=== PATIENT | female | born 1950 | race Caucasian/White ===

== ENCOUNTER 2024-02-22 03:49 | Inpatient (IN) | payer MEDICARE ==
[2024-02-22] MEDS: IPRATROPIUM-ALBUTEROL 3 ML NEB INHALATION STA (04:06)
[2024-02-22] MEDS: NITROGLYCERIN SL TABS 0.4 MG TAB SUBLINGUAL STA (04:06)
--- NOTE | 2024-02-22 04:11 | ED ---
SOB HPI - General Chief Complaint: Shortness of Breath Stated Complaint: shortness of breath Time Seen by Provider: 02/22/24 03:59 Source: patient Mode of arrival: wheelchair Limitations: no limitations - History of Present Illness Initial Comments: Patient is a 73-year-old woman who presents with complaint that she is having worsening of shortness of breath. Patient does have mild nonproductive cough. The symptoms have been getting worse for 7 to 10 days or so. Patient's states that the patient has not been able to sleep other than an her chair and only for a couple of hours at a time. The patient cannot lie flat. She has not noted chest pain. No diaphoresis. No leg swelling, change in urination or bowel movements. Patient does have history of COPD and sees Dr. Monet. She has over 30-year smoking history quit about 3 months ago. MD Complaint: shortness of breath Onset/Timin -: week(s) Severity scale (1-10): 0 Consistency: constant Improves With: upright position Worsens With: lying flat, exertion Known History Of: COPD Associated Symptoms: cough Treatments Prior to Arrival: none - Related Data Home Oxygen Therapy: No Allergies Allergy/AdvReac Type Severity Reaction Status Date / Time bupropion [From Zyban] Allergy Unknown Verified 02/22/24 03:52 naproxen Allergy Unknown Verified 02/22/24 03:51 Review of Systems ROS Statement: Those systems with pertinent positive or pertinent negative responses have been documented in the HPI. ROS Other: All systems not noted in ROS Statement are negative. Constitutional: Denies: fever, chills Respiratory: Reports: cough, dyspnea, wheezes. Denies: hemoptysis Cardiovascular: Reports: dyspnea on exertion, orthopnea. Denies: chest pain, palpitations, edema, syncope Gastrointestinal: Denies: abdominal pain, nausea, vomiting, diarrhea Genitourinary: Denies: dysuria, hematuria Musculoskeletal: Denies: back pain Skin: Denies: rash Neurological: Denies: headache, weakness, numbness Past Medical History Past Medical History: COPD, Hyperlipidemia, Hypertension History of Any Multi-Drug Resistant Organisms: None Reported Past Surgical History: Hysterectomy, Tubal Ligation Past Psychological History: No Psychological Hx Reported Smoking Status: Former smoker Past Alcohol Use History: None Reported Past Drug Use History: None Reported General Exam Limitations: no limitations General appearance: alert, in distress Head exam: Present: atraumatic, normocephalic Eye exam: Present: normal appearance. Absent: scleral icterus, conjunctival injection Neck exam: Present: normal inspection Respiratory exam: Present: respiratory distress, wheezes, accessory muscle use, decreased breath sounds. Absent: rales, rhonchi, stridor, chest wall tenderness Cardiovascular Exam: Present: regular rate, normal rhythm, systolic murmur. Absent: diastolic murmur, rubs, gallop GI/Abdominal exam: Present: soft. Absent: distended, tenderness, guarding, rebound, rigid, mass Extremities exam: Present: normal inspection, normal capillary refill. Absent: pedal edema, calf tenderness Back exam: Present: normal inspection. Absent: CVA tenderness (R), CVA tenderness (L) Neurological exam: Present: alert Skin exam: Present: warm, dry, intact, normal color. Absent: rash Course Vital Signs 02/22/24 02/22/24 02/22/24 03:52 03:55 04:00 Temperature 97.4 F L Pulse Rate 112 H 114 H Respiratory 36 H 40 H 43 H Rate Blood Pressure 187/86 O2 Sat by Pulse 88 L 84 L Oximetry Fraction of Inspired Oxygen (FIO2) 02/22/24 02/22/24 02/22/24 04:03 04:10 04:11 Temperature Pulse Rate 116 H 116 H Respiratory 42 H Rate Blood Pressure 149/88 O2 Sat by Pulse 96 94 L Oximetry Fraction of Inspired Oxygen (FIO2) 02/22/24 02/22/24 02/22/24 04:12 04:25 04:45 Temperature Pulse Rate 111 H 108 H Respiratory 32 H Rate Blood Pressure 134/81 O2 Sat by Pulse 98 Oximetry Fraction of 40 Inspired Oxygen (FIO2) 02/22/24 02/22/24 02/22/24 05:13 05:18 05:28 Temperature Pulse Rate 116 H 114 H 118 H Respiratory 45 H Rate Blood Pressure 125/107 O2 Sat by Pulse 98 Oximetry Fraction of Inspired Oxygen (FIO2) 02/22/24 02/22/24 02/22/24 05:29 05:39 06:00 Temperature Pulse Rate 118 H 120 H 126 H Respiratory 29 H Rate Blood Pressure 129/87 O2 Sat by Pulse 98 Oximetry Fraction of Inspired Oxygen (FIO2) 02/22/24 02/22/24 06:45 07:40 Temperature Pulse Rate 115 H 109 H Respiratory 23 14 Rate Blood Pressure 119/73 132/81 O2 Sat by Pulse 100 99 Oximetry Fraction of Inspired Oxygen (FIO2) Medical Decision Making - Medical Decision Making This 73-year-old woman with history of COPD presenting with worsening dyspnea. Patient also has element of orthopnea associated. On arrival patient is markedly hypertensive, tachypneic, pulse oximetry low 80s. Patient is placed on BiPAP she did have bronchodilators and steroids. She did have improvement with treatment, but then did have some recurrence. She is given additional treatments but states not nearly back to baseline. This patient be admitted - Lab Data Result diagrams: 02/22/24 04:05 02/22/24 04:05 Lab Results 02/22/24 02/22/24 02/22/24 Range/Units 04:05 04:05 04:05 WBC 9.8 (3.8-10.6) k/uL RBC 5.08 (3.80-5.40) m/uL Hgb 15.5 (11.4-16.0) gm/dL Hct 47.5 H (34.0-46.0) % MCV 93.5 (80.0-100.0) fL MCH 30.6 (25.0-35.0) pg MCHC 32.7 (31.0-37.0) g/dL RDW 13.6 (11.5-15.5) % Plt Count 220 (150-450) k/uL MPV 7.1 Neutrophils % 50 % Lymphocytes % 26 % Monocytes % 4 % Eosinophils % 17 % Basophils % 1 % Neutrophils # 4.9 (1.3-7.7) k/uL Lymphocytes # 2.5 (1.0-4.8) k/uL Monocytes # 0.4 (0-1.0) k/uL Eosinophils # 1.7 H (0-0.7) k/uL Basophils # 0.1 (0-0.2) k/uL PT 10.5 (10.0-12.5) sec INR 0.9 (<1.2) APTT 24.1 (22.0-30.0) sec Sodium 139 (137-145) mmol/L Potassium 3.8 (3.5-5.1) mmol/L Chloride 103 (98-107) mmol/L Carbon Dioxide 28 (22-30) mmol/L Anion Gap 8 mmol/L BUN 11 (7-17) mg/dL Creatinine 0.67 (0.52-1.04) mg/dL Est GFR (CKD-EPI)AfAm >90 (>60 ml/min/1.73 sqM) Est GFR (CKD-EPI)NonAf 88 (>60 ml/min/1.73 sqM) Glucose 116 H (74-99) mg/dL Plasma Lactic Acid Franck (0.7-2.0) mmol/L Calcium 9.7 (8.4-10.2) mg/dL Total Bilirubin 0.9 (0.2-1.3) mg/dL AST 30 (14-36) U/L ALT 16 (4-34) U/L Alkaline Phosphatase 59 (38-126) U/L Troponin I (0.000-0.034) ng/mL NT-Pro-B Natriuret Pep 253 pg/mL Total Protein 7.7 (6.3-8.2) g/dL Albumin 5.0 (3.5-5.0) g/dL 02/22/24 02/22/24 Range/Units 04:05 04:05 WBC (3.8-10.6) k/uL RBC (3.80-5.40) m/uL Hgb (11.4-16.0) gm/dL Hct (34.0-46.0) % MCV (80.0-100.0) fL MCH (25.0-35.0) pg MCHC (31.0-37.0) g/dL RDW (11.5-15.5) % Plt Count (150-450) k/uL MPV Neutrophils % % Lymphocytes % % Monocytes % % Eosinophils % % Basophils % % Neutrophils # (1.3-7.7) k/uL Lymphocytes # (1.0-4.8) k/uL Monocytes # (0-1.0) k/uL Eosinophils # (0-0.7) k/uL Basophils # (0-0.2) k/uL PT (10.0-12.5) sec INR (<1.2) APTT (22.0-30.0) sec Sodium (137-145) mmol/L Potassium (3.5-5.1) mmol/L Chloride (98-107) mmol/L Carbon Dioxide (22-30) mmol/L Anion Gap mmol/L BUN (7-17) mg/dL Creatinine (0.52-1.04) mg/dL Est GFR (CKD-EPI)AfAm (>60 ml/min/1.73 sqM) Est GFR (CKD-EPI)NonAf (>60 ml/min/1.73 sqM) Glucose (74-99) mg/dL Plasma Lactic Acid Franck 1.1 (0.7-2.0) mmol/L Calcium (8.4-10.2) mg/dL Total Bilirubin (0.2-1.3) mg/dL AST (14-36) U/L ALT (4-34) U/L Alkaline Phosphatase (38-126) U/L Troponin I 0.017 (0.000-0.034) ng/mL NT-Pro-B Natriuret Pep pg/mL Total Protein (6.3-8.2) g/dL Albumin (3.5-5.0) g/dL - EKG Data -: EKG Interpreted by Me EKG shows normal: sinus rhythm, axis (Normal), intervals (Normal), QRS complexes (Normal), ST-T waves (Normal) Rate: tachycardia (108 bpm) Disposition Clinical Impression: Dyspnea, COPD exacerbation Disposition: ADMITTED IP TO THIS HOSP Condition: Fair Is patient prescribed a controlled substance at d/c from ED?: No
[2024-02-22 04:18] LABS: Basophils # (A) 0.1 k/uL (0-0.2); Basophils % (A) 1 %; Eosinophils # (A) 1.7 k/uL (0-0.7); Eosinophils % (A) 17 %; HCT 47.5 % (34.0-46.0); HGB 15.5 gm/dL (11.4-16.0); Lymphocytes # (A) 2.5 k/uL (1.0-4.8); Lymphocytes % (A) 26 %; MCH 30.6 pg (25.0-35.0); MCHC 32.7 g/dL (31.0-37.0); MCV 93.5 fL (80.0-100.0); Mean Platelet Volume 7.1; Monocytes # (A) 0.4 k/uL (0-1.0); Monocytes % (A) 4 %; Neutrophils # (A) 4.9 k/uL (1.3-7.7); Neutrophils % (A) 50 %; Platelet Count 220 k/uL (150-450); RBC 5.08 m/uL (3.80-5.40); RDW 13.6 % (11.5-15.5); WBC 9.8 k/uL (3.8-10.6)
[2024-02-22 04:37] LABS: ALT 16 U/L (4-34); AST 30 U/L (14-36); African American GFR (CKD) >90 (>60 ml/min/1.73 sqM); Alkaline Phosphatase 59 U/L (38-126); Anion Gap 8 mmol/L; Blood Urea Nitrogen 11 mg/dL (7-17); Calcium 9.7 mg/dL (8.4-10.2); Carbon Dioxide 28 mmol/L (22-30); Chloride 103 mmol/L (98-107); Glucose 116 mg/dL (74-99); INR 0.9 (<1.2); Non-African American GFR(CKD) 88 (>60 ml/min/1.73 sqM); Partial Thromboplastin Time 24.1 sec (22.0-30.0); Potassium 3.8 mmol/L (3.5-5.1); Prothrombin Time 10.5 sec (10.0-12.5); Sodium 139 mmol/L (137-145); Total Bilirubin 0.9 mg/dL (0.2-1.3); Total Protein 7.7 g/dL (6.3-8.2)
[2024-02-22 04:46] LABS: NT-Pro-B-Type Natriuretic Pept 253 pg/mL
[2024-02-22] MEDS: LORazepam 2 MG/ML INJ IV STA (05:13)
[2024-02-22] MEDS: ALBUTEROL NEBULIZED 2.5 MG/3 ML INHALATION STA ×2 (05:13→05:35)
--- NOTE | 2024-02-22 06:31 | XR ---
EXAM: XR Chest, 1 View CLINICAL HISTORY: ITS.REASON XR Reason: dyspnea TECHNIQUE: Frontal view of the chest. COMPARISON: No relevant prior studies available. FINDINGS: Lungs: The lungs are symmetrically hyperinflated. No consolidation. Pleural space: Unremarkable. No pneumothorax. Heart: Unremarkable. No cardiomegaly. Mediastinum: Unremarkable. Normal mediastinal contour. Bones/joints: Degenerative changes seen within the spine and shoulders. No acute fracture. Vasculature: Calcifications overlie the aorta. IMPRESSION: No acute findings in the chest.
[2024-02-22] MEDS ORDERED: NALOXONE 0.4 MG/ML 1 ML VIAL IVP PRN (07:23)
[2024-02-22] MEDS: IPRATROPIUM-ALBUTEROL 3 ML NEB INHALATION SCH (08:47)
[2024-02-22] MEDS: BUDESONIDE 1 MG/2 ML NEBU INHALATION SCH (08:48)
[2024-02-22] MEDS: FORMOTEROL FUMARATE 20 MCG/2 ML NEBU INHALATION SCH (08:48)
--- NOTE | 2024-02-22 09:34 | P.CNPUL ---
History of Present Illness Consult date: 02/22/24 Requesting physician: Abhilash Henry Reason for consult: dyspnea, COPD, hypoxemia Chief complaint: Shortness of breath. History of present illness: Pulmonary consult dated February 22, 2024. 73-year-old female who presents to the emergency department, at about 3:45 in the morning, on 21 February, complaining of severe shortness of breath. She has a mild nonproductive cough. She has not been feeling well for about 7 or 10 days. She called our office, to get in with her nib adjuster, Dr. Monet, who was not available to see her. Apparently she had significant distress and was placed on BiPAP, with settings of 10/5 and 40%. She had a chest x-ray that showed no acute process. She is not receiving any IV fluids. We see her today in ER room 5. She is typically on albuterol, and a combination of long-acting beta agonist/long-acting muscarinic antagonist, Stiolto. Her disease is mild b ased on her lung function. She did smoke cigarettes for 40 years. She does not smoke currently. White count 9.8, hemoglobin 15.5, hematocrit 47.5. And platelet count was normal. Coagulation studies were normal. D-dimer was normal. Sodium 139, potassium 3.8, chlorides 103, CO2 28, Anion Gap 8, BUN 11, Creatinine 0.67. Glucose Is 116. Chest x-ray showed no acute disease. Review of Systems REVIEW OF SYSTEMS: CONSTITUTIONAL: [Negative.] NEUROLOGIC: [ Negative.] HEENT: [ Negative.] CARDIAC: [Negative.] PULMONARY: Shortness of breath, and nonproductive cough. GI: [Negative.] : [Negative.] RHEUMATOLOGIC: [ Negative.] IMMUNOLOGIC: [ Negative.] ENDOCRINE: [Negative. ] DERMATOLOGIC: [Negative.] Past Medical History Past Medical History: COPD, Hyperlipidemia, Hypertension History of Any Multi-Drug Resistant Organisms: None Reported Past Surgical History: Hysterectomy, Tubal Ligation Past Psychological History: No Psychological Hx Reported Smoking Status: Former smoker Past Alcohol Use History: None Reported Past Drug Use History: None Reported Medications and Allergies Allergies Allergy/AdvReac Type Severity Reaction Status Date / Time bupropion [From Zyban] Allergy Unknown Verified 02/22/24 03:52 naproxen Allergy Unknown Verified 02/22/24 03:51 Physical Exam Osteopathic Statement: *. No significant issues noted on an osteopathic structural exam other than those noted in the History and Physical/Consult. Vitals: Vital Signs Temp Pulse Resp BP Pulse Ox FiO2 02/22/24 08:58 124 H 35 H 02/22/24 08:57 124 H 35 H 02/22/24 08:48 122 H 40 H 40 02/22/24 07:40 109 H 14 132/81 99 02/22/24 06:45 115 H 23 119/73 100 02/22/24 06:00 126 H 29 H 129/87 98 02/22/24 05:39 120 H 02/22/24 05:29 118 H 02/22/24 05:28 118 H 02/22/24 05:18 114 H 02/22/24 05:13 116 H 45 H 125/107 98 02/22/24 04:45 108 H 32 H 134/81 98 02/22/24 04:25 111 H 02/22/24 04:12 40 02/22/24 04:11 116 H 02/22/24 04:10 116 H 42 H 149/88 94 L 02/22/24 04:03 96 02/22/24 04:00 43 H 02/22/24 03:55 114 H 40 H 84 L 02/22/24 03:52 97.4 F L 112 H 36 H 187/86 88 L Intake and Output 02/21/24 02/22/24 02/22/24 22:59 06:59 14:59 Other: Weight 61.235 kg No acute distress, oriented 3. Currently on BiPAP. HEENT examination is grossly unremarkable. Mucous membranes are moist. No oral lesions. Neck supple. Full range of motion. No adenopathy thyromegaly or neck vein distention. Cardiovascular examination reveals regular rhythm rate. S1-S2 normal. No S3 or S4. No discernible murmur noted. Heart rate is 120 bpm. Lungs reveal coarse bilateral rhonchi. There is expiratory wheezes. Breath sounds equal bilaterally. Saturations are 99%. Abdomen soft bowel sounds are heard. No masses or tenderness. Extremities are intact. No cyanosis clubbing or edema. Skin is without rash or lesion. Neurologic examination is brief but nonfocal. Results - Laboratory Findings CBC and BMP: 02/22/24 04:05 02/22/24 04:05 PT/INR, D-dimer PT 10.5 sec (10.0-12.5) 02/22/24 04:05 INR 0.9 (<1.2) 02/22/24 04:05 D-Dimer 0.46 mg/L FEU (<0.60) 02/22/24 04:05 Abnormal lab findings: Abnormal Labs 02/22/24 02/22/24 04:05 04:05 Hct 47.5 H Eosinophils # 1.7 H Glucose 116 H - Diagnostic Findings Chest x-ray: image reviewed Assessment and Plan Assessment: Acute hypoxemic respiratory failure, secondary to COPD exacerbation. Prior history of tobacco use. History of hyperlipidemia. History of hypertension. Plan: Plan dated February 22, 2024. The patient is currently on updrafts, with albuterol sulfate and ipratropium bromide. She is also getting budesonide, and formoterol, twice a day at usual doses. In addition she is taking prednisone 40 mg a day. She was given Augmentin, by the ER physician. If not already ordered, procalcitonin level will be done. Labs, x-rays, medications are reviewed. Prognosis is guarded. We were able to look at her last office note, and look at her pulmonary function test. She has mild emphysema based on her numbers. Time with Patient: Greater than 30
[2024-02-22] MEDS: AMOXIC-POT CLAV 875-125MG 1 EACH TAB PO SCH (10:06)
[2024-02-22] MEDS: predniSONE 20 MG TAB PO SCH (10:07)
--- NOTE | 2024-02-22 10:36 | P.HPIM ---
History of Present Illness H&P Date: 02/22/24 Subjective: Patient is a 73-year-old woman with a past medical history of COPD (no home O2) who presents with complaint that she is having worsening of shortness of breath. Patient reports for the last 7 to 10 days she has had increased shortness of breath that has been getting progressively worse. Patient reports she is also required sleeping in a recliner/chair instead of in her own bed to help her breathe at night. Patient denies being on home oxygen. Patient reports that on day of visit to the ED her and her thought that the shortness of breath had become so severe that they wanted it to be further examined at which point they decided to come to the emergency department. In the ED patient admitted to shortness of breath, but denies chest pain, diaphoresis, palpitations, headache, abdominal pain, diarrhea, constipation, nausea vomiting, lower extremity swelling, or changes in urination or bowel movements. Vitals in the ED significant for heart rate 112, respiratory rate 36, blood pressure 187/86, and O2 saturation 88 on room air. Labs in the ED significant for sodium 139, potassium 3.8, BUN 11, creatinine 0.67, glucose 116, troponin 0.017, BNP 253, WBC 9.8, hemoglobin 15.5, and MCV 93.5. Imaging in the ED significant for EKG shows sinus tach, possible left atrial enlargement, ventricular rate 103 bpm, MD interval 134 MS, and QTc 384 MS. CXR shows no acute findings in the chest. While in the ED patient received 1.4 mg sublingual nitroglycerin, one-time DuoNeb 3 mL nebulized and 2 Ventolin nebulized 2.5 mg with symptom improvement. Patient also received first of 10 doses of Augmentin [id number] p.o. every 12 hours. Patient was admitted for further workup and treatment of acute on chronic hypoxic respiratory failure likely secondary to COPD exacerbation. Pertinent positives and negatives discussed above, a complete review of systems was preformed and all the other sytems were negative. Vitals Signs Reveiwed. General: non toxic, no distress, appears at stated age, normal weight Derm: no unusual rashes/lesions, warm Head: atraumatic, normocephalic, symmetric Eyes: EOMI, no lid lag, anicteric sclera, pupils equal round reactive to light ENT: Nose and ears atraumatic Neck: No cervical lymphadenopathy, trachea midline, supple Mouth: no lip lesion, mucus membranes moist Cardiovascular: S1S2 reg, no murmur, positive dorsalis pedis pulse bilateral, no edema Lungs: Decreased air entry bilaterally, expiratory wheezes auscultated bi laterally Abdominal: soft, nontender to palpation, no guarding Ext: muscle strength 5 out of 5 in all 4 extremities grossly, no gross muscle atrophy, no contractures, Neuro: CN II-XI grossly intact, no gross focal neuro deficits Psych: Alert, oriented, appropriate affect Data Reveiwed Today: Patient Labs: Sodium 139, potassium 3.8, BUN 11, creatinine 0.67, troponin 0.017, BNP 253, WBC 9.8, hemoglobin 15.5, and MCV 93.5. Imaging: EKG shows sinus tach, possible left atrial enlargement, ventricular rate 103 bpm, MD interval 134 MS, and QTc 384 MS. CXR shows no acute findings in the chest. Assesment and Plan: 73-year-old female with a past medical history of COPD (no home O2) who presented with complaints of worsening shortness of breath. Patient is being worked up and treated for acute on chronic hypoxic respiratory failure likely secondary to COPD exacerbation. Acute on chronic hypoxic respiratory failure: Likely secondary to COPD exacerbation Patient currently on BiPAP 40, breathing well and feels her work of breath is much improved since arriving to the hospital Monitor O2 saturation (greater than 92%) and work of breath, try to wean off BiPAP to nasal cannula once patient is comfortable as patient normally is not on any O2 at home Will change prednisone p.o. 40 mg to Solu-Medrol 60 mg every 6 hours IVPB while inpatient Continue DuoNeb 3 mL inhalation RT4 times daily, budesonide 1 mg inhalation RTtwice daily Blood cultures pending Per pulmonology we will continue current COPD exacerbation treatment, and have now ordered procalcitonin level Continue telemetry monitoring Hypertension: Latest blood pressure 137/89, continue to monitor Consider treating if patient's blood pressure remains consistently elevated SIRS: Likely due to COPD exacerbation Continue to monitor vitals Hyperlipidemia: Likely will continue patient's home medication rosuvastatin F none E none N no diet placed yet A normally ambulates unassisted at home. DVT ppx: Lovenox 40 mg SQ daily Code Status: Full code Anticipated discharge place: Pending clinical course Anticipated discharge time: Pending clinical course I have seen and evaluated the patient today. Discussed with the resident and agree with the residents subjective and objective as documented in the resident's note. The assessment and plan was discussed and outlined as below. 73 year old F with PMH of COPD, HTN, HLD presents to the ED for shortness of breath and wheezing. In the ED she underwent extensive evaluation. BP 187/86, HR 112, T 97.4F, RR 36, 88% on RA. CBC, Coag panel, CMP significant for Hct 47.5, glu 116. D-Dimer 0.46. Lactic acid 1.1. Trop 0.017. BNP 253. EKG sinus tachycardia. CXR no acute findings. Patient is admitted for COPD exacerbation with Pulmonary consultation. at bedside. Does not have a nebulizer at home. Former smoker. Follows Dr. Monet. General: non toxic, moderate distress, appears at stated age Derm: warm, dry Head: atraumatic, normocephalic, symmetric Eyes: EOMI, no lid lag, anicteric sclera Mouth: no lip lesion, mucus membranes moist Cardiovascular: S1S2 reg, no murmur, positive posterior tibial pulse bilateral, Lungs: Diffuse expiratory wheezing bilateral, no rhonchi, no rales , tachypneic Ext: no gross muscle atrophy, no edema, no contractures Neuro: no focal neuro deficits Psych: Alert, oriented, appropriate affect Based on my assessment of this patient, this patient meets a high complexity level of care. Acute hypoxic respiratory failure likely due to COPD exacerbation SIRS likely due to above Hypertension Dyslipidemia Bronchodilators: DuoNeb 0.5mg-3mg/3ml scheduled and as needed for SOB and wheezing. Pulmicort 1 mg INH BID. Perforomist 20 mcg INH BID. Antibiotics: Augmentin 1 tab PO BID for treatment of acute bronchitis. Steroids: Switch Prednisone to SoluMedrol 60 mg IV Q6H. Supplemental oxygen to maintain O2 > 92%. Telemetry monitoring. Blood cultures ordered. Procalcitonin ordered. CODE STATUS: NO CODE but OK with intubation for a short period of time. DVT Prophylaxis: Lovenox SQ GI Prophylaxis: Protonix PO Designated medical POA if patient is not able to make medical decisions for themselves: . I have reviewed the following health care consultant notes: ED note. I have reviewed the results of the following tests: As above. I have ordered the following tests: As above. I have discussed the care of this patient with the following independent historian: I have independently interpreted the following test below: CXR. I have discussed the management of this patient with the following physician: Dr. Meng. Past Medical History Past Medical History: COPD, Hyperlipidemia, Hypertension History of Any Multi-Drug Resistant Organisms: None Reported Past Surgical History: Hysterectomy, Tubal Ligation Past Psychological History: No Psychological Hx Reported Smoking Status: Former smoker Past Alcohol Use History: None Reported Past Drug Use History: None Reported Medications and Allergies Home Medications Medication Instructions Recorded Confirmed Type Albuterol Sulfate [Albuterol 2 puff INHALATION RT-Q4H 02/22/24 02/22/24 History Sulfate Hfa] Calcium Carbonate/Vitamin D3 1 tab PO DAILY 02/22/24 02/22/24 History [Calcium 600 mg-D3 20 mcg (800 unit)] Cholecalciferol (Vitamin D3) 125 mcg PO DAILY 02/22/24 02/22/24 History [Vitamin D3 (125 MCG = 5,000 IU)] Magnesium Oxide [Magnesium] 500 mg PO DAILY 02/22/24 02/22/24 History Rosuvastatin Calcium [Crestor] 5 mg PO HS 02/22/24 02/22/24 History Tiotropium Br/Olodaterol HCl 2 puff INHALATION RT-DAILY 02/22/24 02/22/24 History [Stiolto Respimat Inhaler (60)] Allergies Allergy/AdvReac Type Severity Reaction Status Date / Time bupropion [From Zyban] Allergy Unknown Verified 02/22/24 10:02 naproxen Allergy Unknown Verified 02/22/24 10:02 Physical Exam Vitals: Vital Signs Temp Pulse Resp BP Pulse Ox FiO2 02/22/24 07:40 109 H 14 132/81 99 02/22/24 06:45 115 H 23 119/73 100 02/22/24 06:00 126 H 29 H 129/87 98 02/22/24 05:39 120 H 02/22/24 05:29 118 H 02/22/24 05:28 118 H 02/22/24 05:18 114 H 02/22/24 05:13 116 H 45 H 125/107 98 02/22/24 04:45 108 H 32 H 134/81 98 02/22/24 04:25 111 H 02/22/24 04:12 40 02/22/24 04:11 116 H 02/22/24 04:10 116 H 42 H 149/88 94 L 02/22/24 04:03 96 02/22/24 04:00 43 H 02/22/24 03:55 114 H 40 H 84 L 02/22/24 03:52 97.4 F L 112 H 36 H 187/86 88 L Intake and Output 02/21/24 02/22/24 02/22/24 22:59 06:59 14:59 Other: Weight 61.235 kg Results CBC & Chem 7: 02/22/24 04:05 02/22/24 04:05 Labs: Abnormal Lab Results - Last 24 Hours (Table) 02/22/24 02/22/24 Range/Units 04:05 04:05 Hct 47.5 H (34.0-46.0) % Eosinophils # 1.7 H (0-0.7) k/uL Glucose 116 H (74-99) mg/dL
[2024-02-22] MEDS ORDERED: methylPREDNISolone SOD SUCCIN 60 MG in SODIUM CHLORIDE 0.9% 100 ML IVPB SCH (18:00)
[2024-02-22] MEDS: methylPREDNISolone SOD SUCCI 125 MG/2 ML VIAL IV SCH (18:07)
[2024-02-22] MEDS: ATORVASTATIN 10 MG TAB PO SCH (21:10)
[2024-02-22] MEDS: IPRATROPIUM-ALBUTEROL 3 ML NEB INHALATION PRN (21:10)
[2024-02-22] MEDS: ALPRAZolam 0.25 MG TAB PO STA (23:17)
[2024-02-23] MEDS: CALCIUM CARB-VIT D 500 MG-5 MCG TAB PO SCH (07:50)
[2024-02-23] MEDS: MAGNESIUM OXIDE 400 MG TAB PO SCH (07:50)
[2024-02-23] MEDS: CHOLECALCIFEROL 125 MCG (5000 IU) TABLET PO SCH (07:50)
[2024-02-23] MEDS: ENOXAPARIN 40 MG/0.4 ML SYRINGE SQ SCH (07:51)
[2024-02-23] MEDS: PANTOPRAZOLE 40 MG TABLET PO SCH (07:51)
--- NOTE | 2024-02-23 11:22 | P.PN ---
Subjective Progress Note Date: 02/23/24 73-year-old female who presents to the emergency department, at about 3:45 in the morning, on 21 February, complaining of severe shortness of breath. She has a mild nonproductive cough. She has not been feeling well for about 7 or 10 days. She called our office, to get in with her purchasing coordinator, Dr. Monet, who was not available to see her. Apparently she had significant distress and was placed on BiPAP, with settings of 10/5 and 40%. She had a chest x-ray that showed no acute process. She is not receiving any IV fluids. We see her today in ER room 5. She is typically on albuterol, and a combination of long-acting beta agonist/long-acting muscarinic antagonist, Stiolto. Her disease is mild based on her lung function. She did smoke cigarettes for 40 years. She does not smoke currently. White count 9.8, hemoglobin 15.5, hematocrit 47.5. And platelet count was normal. Coagulation studies were normal. D-dimer was normal. Sodium 139, potassium 3.8, chlorides 103, CO2 28, Anion Gap 8, BUN 11, Creatinine 0.67. Glucose Is 116. Chest x-ray showed no acute disease. The patient is seen today February 23, 2024 in follow-up on the regular medical floor. She is currently sitting up at the bedside. Awake and alert in no acute distress. She is feeling better today compared to yesterday. Still not quite back to her baseline. She did not require BiPAP through the night. She is currently on 2 L nasal cannula. She is continued on Pulmicort and Perforomist inhalations, DuoNeb inhalations, Solu-Medrol. She remains on Augmentin. Her procalcitonin is 0.04. Objective - Vital Signs Vital signs: Vital Signs Temp 97.6 F 02/23/24 07:23 Pulse 116 H 02/23/24 08:53 Resp 16 02/23/24 07:23 BP 166/76 02/23/24 07:23 Pulse Ox 98 02/23/24 08:23 FiO2 40 02/22/24 11:27 Intake & Output 02/22/24 02/23/24 02/23/24 18:59 06:59 18:59 Weight 61.235 kg 67.1 kg Other: Voiding Method Toilet Toilet # Voids 1 2 - Exam GENERAL EXAM: Alert, pleasant 73-year-old female, on 2 L nasal cannula, fairly comfortable in no apparent distress. HEAD: Normocephalic. EYES: Normal reaction of pupils, equal size. NOSE: Clear with pink turbinates. THROAT: No erythema or exudates. NECK: No masses, no JVD. CHEST: No chest wall deformity. LUNGS: Equal air entry with bilateral end expiratory wheeze, diminished. CVS: S1 and S2 normal with no audible murmur, regular rhythm. ABDOMEN: No hepatosplenomegaly, normal bowel sounds, no guarding or rigidity. SPINE: No scoliosis or deformity SKIN: No rashes CENTRAL NERVOUS SYSTEM: No focal deficits, tone is normal in all 4 extremities. EXTREMITIES: There is no peripheral edema. No clubbing, no cyanosis. Periphera l pulses are intact. - Labs CBC & Chem 7: 02/22/24 04:05 02/22/24 04:05 Assessment and Plan Assessment: Acute hypoxemic respiratory failure, secondary to COPD exacerbation Prior history of tobacco use History of hyperlipidemia History of hypertension Plan: The patient was seen and evaluated Medications and labs reviewed Procalcitonin within normal limits Discontinue Augmentin Continue bronchodilators, steroids Titrate the FiO2 as tolerated Increase activity as tolerated We will continue to follow This patient was seen independently by the pulmonary nurse practitioner addressing pulmonary issues I have personally seen and examined the patient, performed the documentation and the assessment and plan as written. Number of minutes spent on the visit: 24.
--- NOTE | 2024-02-23 11:30 | P.PN ---
Subjective Progress Note Date: 02/23/24 73 year old F with PMH of COPD, HTN, HLD presents to the ED for shortness of breath and wheezing. In the ED she underwent extensive evaluation. BP 187/86, HR 112, T 97.4F, RR 36, 88% on RA. CBC, Coag panel, CMP significant for Hct 47.5, glu 116. D-Dimer 0.46. Lactic acid 1.1. Trop 0.017. BNP 253. EKG sinus tachycardia. CXR no acute findings. Patient is admitted for COPD exacerbation with Pulmonary consultation. Started BiPAP in the ED. Started on bronchodilators and SoluMedrol. Empirically started on Augmentin. Her pro-magalis came back negative and Augmentin was discontinued by Pulmonary. 02/22 Patient was seen and examined. Breathing improved. 60% better per patient. Currently on 2L NC. She is pending clinical improvement. General: non toxic, no distress, appears at stated age Derm: warm, dry Head: atraumatic, normocephalic, symmetric Eyes: EOMI, no lid lag, anicteric sclera Mouth: no lip lesion, mucus membranes moist Cardiovascular: S1S2 tachy, no murmur Lungs: Expiratory wheezing bilateral, no rhonchi, no rales , no accessory muscle use Ext: no gross muscle atrophy, no edema, no contractures Neuro: no focal neuro deficits Psych: Alert, oriented, appropriate affect Based on my assessment of this patient, this patient meets a high complexity level of care. Acute hypoxic respiratory failure likely due to COPD exacerbation SIRS likely due to above Hypertension Dyslipidemia Bronchodilators: DuoNeb 0.5mg-3mg/3ml scheduled and as needed for SOB and wheezing. Pulmicort 1 mg INH BID. Perforomist 20 mcg INH BID. Steroids: Switch Prednisone to SoluMedrol 60 mg IV Q6H. Supplemental oxygen to maintain O2 > 92%. Telemetry monitoring. Blood cultures pending. Procalcitonin negative, antibiotics discontinued. CODE STATUS: NO CODE but OK with intubation for a short period of time. DVT Prophylaxis: Lovenox SQ GI Prophylaxis: Protonix PO Designated medical POA if patient is not able to make medical decisions for themselves: . I have reviewed the following resourcing consultant notes: Pulmonary note. I have reviewed the results of the following tests: Pro-magalis. I have ordered the following tests: I have discussed the care of this patient with the following independent historian: I have independently interpreted the following test below: I have discussed the management of this patient with the following physician: Objective - Vital Signs Vital signs: Vital Signs Temp 97.6 F 02/23/24 07:23 Pulse 116 H 02/23/24 08:53 Resp 16 02/23/24 07:23 BP 166/76 02/23/24 07:23 Pulse Ox 98 02/23/24 08:23 FiO2 40 02/22/24 11:27 Intake & Output 02/22/24 02/23/24 02/23/24 18:59 06:59 18:59 Weight 61.235 kg 67.1 kg Other: Voiding Method Toilet Toilet # Voids 1 2 - Labs CBC & Chem 7: 02/22/24 04:05 02/22/24 04:05
[2024-02-23] MEDS: guaiFENesin 600 MG TABLET.ER PO SCH (14:22)
--- NOTE | 2024-02-24 11:02 | P.PN ---
Subjective Progress Note Date: 02/24/24 Patient seen at bedside. No significant overnight events. Patient reports she feels about the same in terms of her breathing, even though she has gone from BiPAP 40 on admission to now only requiring 2 L nasal cannula. Pertinent positives and negatives discussed above, a complete review of systems was preformed and all the other sytems were negative. Vitals Signs Reveiwed. General: non toxic, no distress, appears at stated age, normal weight Derm: no unusual rashes/lesions, warm Head: atraumatic, normocephalic, symmetric Eyes: EOMI, no lid lag, anicteric sclera, pupils equal round reactive to light ENT: Nose and ears atraumatic Neck: No cervical lymphadenopathy, trachea midline, supple Mouth: no lip lesion, mucus membranes moist Cardiovascular: S1S2 reg, no murmur, positive dorsalis pedis pulse bilateral, no edema Lungs: Decreased air entry bilaterally, expiratory wheezes auscultated bilaterally Abdominal: soft, nontender to palpation, no guarding Ext: muscle strength 5 out of 5 in all 4 extremities grossly, no gross muscle atrophy, no contractures, Neuro: CN II-XI grossly intact, no gross focal neuro deficits Psych: Alert, oriented, appropriate affect Data Reveiwed Today: Patient Labs: No new labs Imaging: No new imaging Assesment and Plan: 73-year-old female with a past medical history of COPD (no home O2) who presented with complaints of worsening shortness of breath. Patient is being worked up and treated for acute on chronic hypoxic respiratory failure likely secondary to COPD exacerbation. Acute on chronic hypoxic respiratory failure: Likely secondary to COPD exacerbation Patient currently saturating well on 2 L nasal cannula, down from BiPAP 40 on admission. Patient is progressing well, will continue current management for now. Monitor O2 saturation (greater than 92%) and work of breath, try to wean off 2 L nasal cannula to room air as patient normally is not on any O2 at home Continue Solu-Medrol 60 mg every 6 hours IVPB while inpatient Continue DuoNeb 3 mL inhalation RT4 times daily, budesonide 1 mg inhalation RTtwice daily Preliminary blood cultures show no growth, antibiotics discontinued Per pulmonology we will continue current COPD exacerbation treatment, procalcitonin within normal limits Continue telemetry monitoring Will add Ensure with meals as patient has decreased appetite, likely secondary to current respiratory symptoms Added 0.25 mg Xanax 3 times daily as needed, symptoms of COPD are causing patient some distress Hypertension: Latest blood pressure 144/72, continue to monitor Consider treating if patient's blood pressure remains consistently elevated SIRS: Likely due to COPD exacerbation Continue to monitor vitals Hyperlipidemia: Continue patient's Lipitor 10 mg p.o. F none E none N heart healthy diet, with ensures at meals A normally ambulates unassisted at home. DVT ppx: Lovenox 40 mg SQ daily Code Status: No code with instructions to be intubated for short period of time only. Anticipated discharge place: Pending clinical course Anticipated discharge time: Pending clinical course I have seen and evaluated the patient today. Discussed with the resident and agree with the residents subjective and objective as documented in the resident's note. The assessment and plan was discussed and outlined as below. Still quite SOB with little activity. Appears anxious. Diffuse wheezing bilaterally on physical exam. Acute hypoxic respiratory failure likely due to COPD exacerbation SIRS likely due to above Anxiety Hypertension Dyslipidemia Bronchodilators: DuoNeb 0.5mg-3mg/3ml scheduled and as needed for SOB and wheezing. Pulmicort 1 mg INH BID. Perforomist 20 mcg INH BID. Steroids: Switch Prednisone to SoluMedrol 60 mg IV Q6H. Supplemental oxygen to maintain O2 > 92%. Telemetry monitoring. Blood cultures prelim negative. Start Xanax 0.25 mg PO TID PRN for anxiety. Procalcitonin negative, antibiotics discontinued. Objective - Vital Signs Vital signs: Vital Signs Temp 98.0 F 02/24/24 01:25 Pulse 110 H 02/24/24 03:56 Resp 16 02/24/24 01:25 BP 144/72 02/24/24 01:25 Pulse Ox 98 02/24/24 01:25 FiO2 40 02/22/24 11:27 Intake & Output 02/23/24 02/24/24 02/24/24 18:59 06:59 18:59 Weight 67 kg Other: Voiding Method Toilet Toilet # Voids 2 1 - Labs CBC & Chem 7: 02/22/24 04:05 02/22/24 04:05 Labs: Microbiology - Last 24 Hours (Table) 02/22/24 09:15 Blood Culture - Preliminary Blood
--- NOTE | 2024-02-24 13:09 | P.PN ---
Subjective Progress Note Date: 02/24/24 73-year-old female who presents to the emergency department, at about 3:45 in the morning, on 21 February, complaining of severe shortness of breath. She has a mild nonproductive cough. She has not been feeling well for about 7 or 10 days. She called our office, to get in with her hair or beauty salon assistant, Dr. Monet, who was not available to see her. Apparently she had significant distress and was placed on BiPAP, with settings of 10/5 and 40%. She had a chest x-ray that showed no acute process. She is not receiving any IV fluids. We see her today in ER room 5. She is typically on albuterol, and a combination of long-acting beta agonist/long-acting muscarinic antagonist, Stiolto. Her disease is mild based on her lung function. She did smoke cigarettes for 40 years. She does not smoke currently. White count 9.8, hemoglobin 15.5, hematocrit 47.5. And platelet count was normal. Coagulation studies were normal. D-dimer was normal. Sodium 139, potassium 3.8, chlorides 103, CO2 28, Anion Gap 8, BUN 11, Creatinine 0.67. Glucose Is 116. Chest x-ray showed no acute disease. The patient is seen today February 23, 2024 in follow-up on the regular medical floor. She is currently sitting up at the bedside. Awake and alert in no acute distress. She is feeling better today compared to yesterday. Still not quite back to her baseline. She did not require BiPAP through the night. She is currently on 2 L nasal cannula. She is continued on Pulmicort and Perforomist inhalations, DuoNeb inhalations, Solu-Medrol. She remains on Augmentin. Her procalcitonin is 0.04. The patient is seen today February 24, 2024 in follow-up on the regular medical floor. She is awake and alert in no acute distress. Maintaining good O2 saturations in the 90s on liters per minute per nasal cannula. Not quite back to her baseline. She did not require BiPAP last night. She is still somewhat bronchospastic and wheezing. She is continued on DuoNeb inhalations, Pulmicort and performs inhalations, IV Solu-Medrol. Objective - Vital Signs Vital signs: Vital Signs Temp 97.9 F 02/24/24 12:10 Pulse 102 H 02/24/24 12:25 Resp 18 02/24/24 12:10 BP 131/75 02/24/24 12:10 Pulse Ox 95 02/24/24 12:10 FiO2 40 02/22/24 11:27 Intake & Output 02/23/24 02/24/24 02/24/24 18:59 06:59 18:59 Weight 67 kg Other: Voiding Method Toilet Toilet # Voids 2 1 2 - Exam GENERAL EXAM: Alert, 73-year-old female, sitting up in bed, on 2 L nasal cannula, comfortable in no apparent distress. HEAD: Normocephalic. EYES: Normal reaction of pupils, equal size. NOSE: Clear with pink turbinates. THROAT: No erythema or exudates. NECK: No masses, no JVD. CHEST: No chest wall deformity. LUNGS: Equal air entry with bilateral end expiratory wheeze, diminished. CVS: S1 and S2 normal with no audible murmur, regular rhythm. ABDOMEN: No hepatosplenomegaly, normal bowel sounds, no guarding or rigidity. SPINE: No scoliosis or deformity SKIN: No rashes CENTRAL NERVOUS SYSTEM: No focal deficits, tone is normal in all 4 extremities. EXTREMITIES: There is no peripheral edema. No clubbing, no cyanosis. Peripheral pulses are intact. - Labs CBC & Chem 7: 02/22/24 04:05 02/22/24 04:05 Labs: Microbiology - Last 24 Hours (Table) 02/22/24 09:15 Blood Culture - Preliminary Blood Assessment and Plan Assessment: Acute hypoxemic respiratory failure secondary to COPD exacerbation Prior history of tobacco use History of hyperlipidemia History of hypertension Plan: The patient was seen and evaluated Medications reviewed Continue bronchodilators, steroids Titrate the FiO2 as tolerated Increase activity as tolerated We will continue to follow I have personally seen and examined the patient, performed the documentation and the assessment and plan as written. Number of minutes spent on the visit: 10.
[2024-02-24] MEDS: ALPRAZolam 0.25 MG TAB PO PRN (18:37)
[2024-02-25] MEDS: THEOPHYLLINE 24 HOUR 300 MG CAP.ER.24H PO SCH (08:47)
--- NOTE | 2024-02-25 08:47 | P.PN ---
Subjective Progress Note Date: 02/25/24 (02/23) Patient seen at bedside. No significant overnight events. Patient reports she feels about the same in terms of her breathing, even though she has gone from BiPAP 40 on admission to now only requiring 2 L nasal cannula. (02/24) patient seen at bedside, patient complains of increased wheezing and wo rsening of symptoms at night. This required the patient to sit upright in her recliner to sleep. Patient reports she feels somewhat worse in terms of her work of breathing compared to yesterday. Patient now requiring 3 L nasal cannula. Pertinent positives and negatives discussed above, a complete review of systems was preformed and all the other sytems were negative. Vitals Signs Reveiwed. General: non toxic, no distress, appears at stated age, normal weight Derm: no unusual rashes/lesions, warm Head: atraumatic, normocephalic, symmetric Eyes: EOMI, no lid lag, anicteric sclera, pupils equal round reactive to light ENT: Nose and ears atraumatic Neck: No cervical lymphadenopathy, trachea midline, supple Mouth: no lip lesion, mucus membranes moist Cardiovascular: S1S2 reg, no murmur, positive dorsalis pedis pulse bilateral, no edema Lungs: Decreased air entry bilaterally, expiratory wheezes auscultated bilaterally Abdominal: soft, nontender to palpation, no guarding Ext: muscle strength 5 out of 5 in all 4 extremities grossly, no gross muscle atrophy, no contractures, Neuro: CN II-XI grossly intact, no gross focal neuro deficits Psych: Alert, oriented, appropriate affect Data Reveiwed Today: Patient Labs: Pending labs Imaging: Pending chest x-ray from today Assesment and Plan: 73-year-old female with a past medical history of COPD (no home O2) who presented with complaints of worsening shortness of breath. Patient is being worked up and treated for acute on chronic hypoxic respiratory failure likely secondary to COPD exacerbation. Acute on chronic hypoxic respiratory failure: Likely secondary to COPD exacerbation Patient currently saturating well on 3 L nasal cannula, up from 2 L yesterday. Monitor O2 saturation (greater than 92%) and work of breath, try to wean off 3 L nasal cannula to room air as patient normally is not on any O2 at home Continue Solu-Medrol 60 mg every 6 hours IVPB while inpatient Continue DuoNeb 3 mL inhalation RT4 times daily, budesonide 1 mg inhalation RTtwice daily Both Per pulmonology we will continue current COPD exacerbation treatment with the addition of theophylline 600 mg p.o. daily, procalcitonin wnl Continue telemetry monitoring Ensure added between meals 3 times daily as patient has decreased appetite, likely secondary to current respiratory symptoms Added 0.25 mg Xanax 3 times daily as needed, symptoms of COPD are causing patient some distress Patient has not had bowel movement since (02/21), started MiraLAX 17 g p.o. daily. Follow-up results of chest x-ray from today, ordered to investigate possible etiology of increased shortness of breath. Hypertension: Latest blood pressure 131/69, continue to monitor Consider treating if patient's blood pressure remains consistently elevated SIRS: Likely due to COPD exacerbation Continue to monitor vitals Hyperlipidemia: Continue patient's Lipitor 10 mg p.o. F none E none N heart healthy diet, with ensures at meals A normally ambulates unassisted at home. DVT ppx: Lovenox 40 mg SQ daily Code Status: No code with instructions to be intubated for short period of time only. Anticipated discharge place: Pending clinical course Anticipated discharge time: Pending clinical course I have seen and evaluated the patient today. Discussed with the resident and agree with the residents subjective and objective as documented in the resident's note. The assessment and plan was discussed and outlined as below. Worsening SOB overnight requiring upwards of 6L NC. Appears anxious. Diffuse wheezing bilaterally on physical exam. Theophylline started by Pulmonary. Acute hypoxic respiratory failure likely due to COPD exacerbation SIRS likely due to above, leukocytosis likely related to steroid use Anxiety Hypertension Dyslipidemia Bronchodilators: DuoNeb 0.5mg-3mg/3ml scheduled and as needed for SOB and wheezing. Pulmicort 1 mg INH BID. Perforomist 20 mcg INH BID. Steroids: Switch Prednisone to SoluMedrol 60 mg IV Q6H. Supplemental oxygen to maintain O2 > 92%. Telemetry monitoring. Blood cultures prelim negative. Xanax 0.25 mg PO TID PRN for anxiety. Theophylline 600 mg PO QD started by Pulmonary. Order repeat CXR for tomorrow. Procalcitonin negative, antibiotics discontinued. Patient is pending clinical improvement. Objective - Vital Signs Vital signs: Vital Signs Temp 98.3 F 02/25/24 01:15 Pulse 97 02/25/24 03:39 Resp 16 07/30/24 01:15 BP 131/69 02/25/24 01:15 Pulse Ox 96 02/25/24 01:15 FiO2 40 02/22/24 11:27 Intake & Output 02/24/24 02/24/24 02/25/24 06:59 18:59 06:59 Intake Total 560 Balance 560 Weight 67 kg 62.1 kg Intake: Oral 560 Other: Voiding Method Toilet Toilet # Voids 1 1 1 - Labs CBC & Chem 7: 02/25/24 07:08 02/25/24 07:08 Labs: Microbiology - Last 24 Hours (Table) 02/22/24 09:15 Blood Culture - Preliminary Blood
[2024-02-25 11:51] LABS: HCT 43.1 % (37.2-46.3); HGB 14.3 g/dL (12.0-15.0); MCH 30.4 pg (27.0-32.0); MCHC 33.2 g/dL (32.0-37.0); MCV 91.5 FL (80.0-97.0); Mean Platelet Volume 10.1 FL (9.5-12.2); NRBC Per 100 WBC 0 X 10*3/uL (0.00-0.01); Platelet Count 244 X 10*3/uL (140-440); RBC 4.71 X 10*6/uL (4.10-5.20); RDW 14.3 % (11.5-14.5); WBC 16.52 X 10*3/uL (4.50-10.00)
[2024-02-25 12:07] LABS: ALT 34 U/L (8-44); AST 38 U/L (13-35); Albumin 4.5 g/dL (3.8-4.9); Albumin/Globulin Ratio 2.37 Ratio (1.60-3.17); Alkaline Phosphatase 58 U/L (41-126); BUN/Creat Ratio 28.71 Ratio (12.00-20.00); Blood Urea Nitrogen 20.1 mg/dL (9.0-27.0); Calcium 9.5 mg/dL (8.7-10.3); Carbon Dioxide 24.6 mmol/L (21.6-31.8); Chloride 100 mmol/L (96-109); Globulin 1.9 g/dL (1.6-3.3); Glucose 156 mg/dL (70-110); Potassium 4.4 mmol/L (3.5-5.5); Sodium 138 mmol/L (135-145); Total Bilirubin 0.3 mg/dL (0.3-1.2); Total Protein 6.4 g/dL (6.2-8.2)
[2024-02-25] MEDS: polyethylene glycoL 3350 17 GM POWD.PACK PO SCH (12:12)
--- NOTE | 2024-02-25 12:36 | P.PN ---
Subjective Progress Note Date: 02/25/24 73-year-old female who presents to the emergency department, at about 3:45 in the morning, on 21 February, complaining of severe shortness of breath. She has a mild nonproductive cough. She has not been feeling well for about 7 or 10 days. She called our office, to get in with her animal hospital clerk, Dr. Monet, who was not available to see her. Apparently she had significant distress and was placed on BiPAP, with settings of 10/5 and 40%. She had a chest x-ray that showed no acute process. She is not receiving any IV fluids. We see her today in ER room 5. She is typically on albuterol, and a combination of long-acting beta agonist/long-acting muscarinic antagonist, Stiolto. Her disease is mild based on her lung function. She did smoke cigarettes for 40 years. She does not smoke currently. White count 9.8, hemoglobin 15.5, hematocrit 47.5. And platelet count was normal. Coagulation studies were normal. D-dimer was normal. Sodium 139, potassium 3.8, chlorides 103, CO2 28, Anion Gap 8, BUN 11, Creatinine 0.67. Glucose Is 116. Chest x-ray showed no acute disease. The patient is seen today February 23, 2024 in follow-up on the regular medical floor. She is currently sitting up at the bedside. Awake and alert in no acute distress. She is feeling better today compared to yesterday. Still not quite back to her baseline. She did not require BiPAP through the night. She is currently on 2 L nasal cannula. She is continued on Pulmicort and Perforomist inhalations, DuoNeb inhalations, Solu-Medrol. She remains on Augmentin. Her procalcitonin is 0.04. The patient is seen today February 24, 2024 in follow-up on the regular medical floor. She is awake and alert in no acute distress. Maintaining good O2 saturations in the 90s on liters per minute per nasal cannula. Not quite back to her baseline. She did not require BiPAP last night. She is still somewhat bronchospastic and wheezing. She is continued on DuoNeb inhalations, Pulmicort and performs inhalations, IV Solu-Medrol. The patient is seen today February 25, 2024 in follow-up on the regular medical floor. She is currently sitting up in a chair. Awake and alert in no acute distress. Breathing a bit easier today compared to yesterday. Still not quite back to her baseline. She has been slow to progress. Blood cultures revealed no growth. White count 16.5. Hemoglobin 14.3. Platelets 244. Sodium 138. Potassium 4.4. Bicarb 25. BUN 20. Creatinine 0.7. Glucose 156. She is continued on DuoNeb inhalations, Pulmicort and Perforomist inhalations, Solu- Medrol. Objective - Vital Signs Vital signs: Vital Signs Temp 97.6 F 02/25/24 07:42 Pulse 108 H 02/25/24 12:11 Resp 19 02/25/24 07:42 BP 163/81 02/25/24 07:42 Pulse Ox 94 L 02/25/24 07:42 FiO2 40 02/22/24 11:27 Intake & Output 02/24/24 02/25/24 02/25/24 18:59 06:59 18:59 Intake Total 560 Balance 560 Weight 62.1 kg Intake: Oral 560 Other: Voiding Method Toilet # Voids 1 1 - Exam GENERAL EXAM: Alert, thin 73-year-old female, sitting up in bed, on 2 L nasal cannula, in no apparent distress. HEAD: Normocephalic. EYES: Normal reaction of pupils, equal size. NOSE: Clear with pink turbinates. THROAT: No erythema or exudates. NECK: No masses, no JVD. CHEST: No chest wall deformity. LUNGS: Equal air entry with bilateral end expiratory wheeze, diminished. CVS: S1 and S2 normal with no audible murmur, regular rhythm. ABDOMEN: No hepatosplenomegaly, normal bowel sounds, no guarding or rigidity. SPINE: No scoliosis or deformity SKIN: No rashes CENTRAL NERVOUS SYSTEM: No focal deficits, tone is normal in all 4 extremities. EXTREMITIES: There is no peripheral edema. No clubbing, no cyanosis. Peripheral pulses are intact. - Labs CBC & Chem 7: 02/25/24 07:08 02/25/24 07:08 Labs: Abnormal Lab Results - Last 24 Hours (Table) 02/25/24 02/25/24 Range/Units 07:08 07:08 WBC 16.52 H (4.50-10.00) X 10*3/uL Anion Gap 13.40 H (4.00-12.00) mmol/L BUN/Creatinine Ratio 28.71 H (12.00-20.00) Ratio Glucose 156 H (70-110) mg/dL AST 38 H (13-35) U/L Microbiology - Last 24 Hours (Table) 02/22/24 09:15 Blood Culture - Preliminary Blood Assessment and Plan Assessment: Acute hypoxemic respiratory failure secondary to COPD exacerbation Prior history of tobacco use History of hyperlipidemia History of hypertension Plan: The patient was seen and evaluated Medications and labs reviewed She has been slow to improve Add theophylline 600 mg p.o. daily Continue bronchodilators, steroids Titrate the FiO2 as tolerated Increase activity as tolerated We will continue to follow I have personally seen and examined the patient, performed the documentation and the assessment and plan as written. Number of minutes spent on the visit: 10.
--- NOTE | 2024-02-25 16:55 | XR ---
EXAMINATION TYPE: XR chest 1V portable DATE OF EXAM: 02/25/2024 Comparison: 02/22/2024 Clinical History: 73-year-old female shortness of breath Findings: Heart normal size. Atherosclerotic arch calcifications. Hazy lower lung densities relating to overlyi ng soft tissue. S-shaped scoliosis of the spine. No consolidation or pleural effusion. Impression: S-shaped scoliosis. No acute process seen.
--- NOTE | 2024-02-26 09:05 | P.PN ---
Subjective Progress Note Date: 02/26/24 (02/23) Patient seen at bedside. No significant overnight events. Patient reports she feels about the same in terms of her breathing, even though she has gone from BiPAP 40 on admission to now only requiring 2 L nasal cannula. (02/24) patient seen at bedside, patient complains of increased wheezing and wo rsening of symptoms at night. This required the patient to sit upright in her recliner to sleep. Patient reports she feels somewhat worse in terms of her work of breathing compared to yesterday. Patient now requiring 3 L nasal cannula. (02/25) Patient seen at bedside. Patient feeling significantly better today, her shortness of breath and wheezing have vastly improved. Patient reports she is eating approximately 30% of her meals, but consistently drinking Ensure between meals. Pertinent positives and negatives discussed above, a complete review of systems was preformed and all the other sytems were negative. Vitals Signs Reveiwed. General: non toxic, no distress, appears at stated age, normal weight Derm: no unusual rashes/lesions, warm Head: atraumatic, normocephalic, symmetric Eyes: EOMI, no lid lag, anicteric sclera, pupils equal round reactive to light ENT: Nose and ears atraumatic Neck: No cervical lymphadenopathy, trachea midline, supple Mouth: no lip lesion, mucus membranes moist Cardiovascular: S1S2 reg, no murmur, positive dorsalis pedis pulse bilateral, no edema Lungs: Decreased air entry bilaterally, expiratory wheezes auscultated bilaterally Abdominal: soft, nontender to palpation, no guarding Ext: muscle strength 5 out of 5 in all 4 extremities grossly, no gross muscle atrophy, no contractures, Neuro: CN II-XI grossly intact, no gross focal neuro deficits Psych: Alert, oriented, appropriate affect Data Reveiwed Today: Patient Labs: Sodium 135, potassium 4.4, BUN 21, creatinine 0.64, glucose 155, calcium 10, WBC 14.1, hemoglobin 15.2, and MCV 93.7. Imaging: Chest x-ray showed S shaped scoliosis. No acute process seen. Assesment and Plan: 73-year-old female with a past medical history of COPD (no home O2) who presented with complaints of worsening shortness of breath. Patient is being worked up and treated for acute on chronic hypoxic respiratory failure likely secondary to COPD exacerbation. Acute on chronic hypoxic respiratory failure: Likely secondary to COPD exacerbation Patient saturating well on 2 L, will try home oxygen test today. Monitor O2 saturation (greater than 92%) and work of breath, try to wean off 3 L nasal cannula to room air as patient normally is not on any O2 at home Continue Solu-Medrol 60 mg every 6 hours IVPB while inpatient Continue DuoNeb 3 mL inhalation RT4 times daily, budesonide 1 mg inhalation RTtwice daily Per pulmonology we will continue current COPD exacerbation treatment with the addition of theophylline 600 mg p.o. daily, procalcitonin wnl, after discussing with pulmonology today (02/25) they believe patient will be safe for discharge by tomorrow. Scheduled home O2 test for tomorrow morning before patient is potentially discharge. Continue telemetry monitoring Ensure added between meals 3 times daily as patient has decreased appetite, likely secondary to current respiratory symptoms Added 0.25 mg Xanax 3 times daily as needed, symptoms of COPD are causing patient some distress Patient has not had bowel movement since (02/21), started MiraLAX 17 g p.o. daily, patient has had 3 bowel movements since yesterday. Chest x-ray showed no acute process. Hypertension: Range in the last 24 hours systolic [id number] and diastolic [id number], continue to monitor Consider treating if patient's blood pressure remains consistently elevated SIRS: Likely due to COPD exacerbation Continue to monitor vitals Hyperlipidemia: Continue patient's Lipitor 10 mg p.o. F none E none N heart healthy diet, with ensures at meals A normally ambulates unassisted at home. DVT ppx: Lovenox 40 mg SQ daily Code Status: No code with instructions to be intubated for short period of time only. Anticipated discharge place: Pending clinical course Anticipated discharge time: Pending clinical course I have seen and evaluated the patient today. Discussed with the resident and agree with the residents subjective and objective as documented in the resident's note. The assessment and plan was discussed and outlined as below. Improved SOB currently on 2L NC. Diffuse wheezing bilaterally with improved air entry on physical exam. Repeat CXR no acute findings. Acute hypoxic respiratory failure likely due to COPD exacerbation SIRS likely due to above, leukocytosis likely related to steroid use Anxiety Hypertension Dyslipidemia Bronchodilators: DuoNeb 0.5mg-3mg/3ml scheduled and as needed for SOB and wheezing. Pulmicort 1 mg INH BID. Perforomist 20 mcg INH BID. Steroids: SoluMedrol 60 mg IV Q6H. Supplemental oxygen to maintain O2 > 92%. Telemetry monitoring. Blood cultures prelim negative. Xanax 0.25 mg PO TID PRN for anxiety. Theophylline 600 mg PO QD started by Pulmonary. Procalcitonin negative, antibiotics discontinued. Patient is pending clinical improvement. Considerably improved today. Attempt to wean O2. Home O2 eval prior to discharge. Likely DC in 1-2 days. Objective - Vital Signs Vital signs: Vital Signs Temp 97.7 F 02/26/24 01:11 Pulse 103 H 02/26/24 01:11 Resp 18 02/26/24 01:11 BP 117/71 02/26/24 01:11 Pulse Ox 95 02/26/24 01:11 FiO2 40 02/22/24 11:27 Intake & Output 02/25/24 02/26/24 02/26/24 18:59 06:59 18:59 Intake Total 540 Balance 540 Weight 63 kg Intake: Oral 540 Other: Voiding Method Toilet # Voids 3 2 - Labs CBC & Chem 7: 02/26/24 09:16 02/26/24 09:16 Labs: Abnormal Lab Results - Last 24 Hours (Table) 02/25/24 02/25/24 Range/Units 07:08 07:08 WBC 16.52 H (4.50-10.00) X 10*3/uL Anion Gap 13.40 H (4.00-12.00) mmol/L BUN/Creatinine Ratio 28.71 H (12.00-20.00) Ratio Glucose 156 H (70-110) mg/dL AST 38 H (13-35) U/L Microbiology - Last 24 Hours (Table) 02/22/24 09:15 Blood Culture - Preliminary Blood
[2024-02-26 09:49] LABS: HCT 45.5 % (34.0-46.0); HGB 15.2 gm/dL (11.4-16.0); MCH 31.4 pg (25.0-35.0); MCHC 33.5 g/dL (31.0-37.0); MCV 93.7 fL (80.0-100.0); Mean Platelet Volume 7.5; Platelet Count 294 k/uL (150-450); RBC 4.86 m/uL (3.80-5.40); RDW 13.7 % (11.5-15.5); WBC 14.1 k/uL (3.8-10.6)
[2024-02-26 10:01] LABS: African American GFR (CKD) >90 (>60 ml/min/1.73 sqM); Anion Gap 7 mmol/L; Blood Urea Nitrogen 21 mg/dL (7-17); Carbon Dioxide 27 mmol/L (22-30); Chloride 101 mmol/L (98-107); Glucose 155 mg/dL (74-99); Non-African American GFR(CKD) 90 (>60 ml/min/1.73 sqM); Potassium 4.4 mmol/L (3.5-5.1); Sodium 135 mmol/L (137-145)
--- NOTE | 2024-02-26 12:42 | P.PN ---
Subjective Progress Note Date: 02/26/24 73-year-old female who presents to the emergency department, at about 3:45 in the morning, on 21 February, complaining of severe shortness of breath. She has a mild nonproductive cough. She has not been feeling well for about 7 or 10 days. She called our office, to get in with her traveling construction superintendent, Dr. Monet, who was not available to see her. Apparently she had significant distress and was placed on BiPAP, with settings of 10/5 and 40%. She had a chest x-ray that showed no acute process. She is not receiving any IV fluids. We see her today in ER room 5. She is typically on albuterol, and a combination of long-acting beta agonist/long-acting muscarinic antagonist, Stiolto. Her disease is mild based on her lung function. She did smoke cigarettes for 40 years. She does not smoke currently. White count 9.8, hemoglobin 15.5, hematocrit 47.5. And platelet count was normal. Coagulation studies were normal. D-dimer was normal. Sodium 139, potassium 3.8, chlorides 103, CO2 28, Anion Gap 8, BUN 11, Creatinine 0.67. Glucose Is 116. Chest x-ray showed no acute disease. The patient is seen today February 23, 2024 in follow-up on the regular medical floor. She is currently sitting up at the bedside. Awake and alert in no acute distress. She is feeling better today compared to yesterday. Still not quite back to her baseline. She did not require BiPAP through the night. She is currently on 2 L nasal cannula. She is continued on Pulmicort and Perforomist inhalations, DuoNeb inhalations, Solu-Medrol. She remains on Augmentin. Her procalcitonin is 0.04. The patient is seen today February 24, 2024 in follow-up on the regular medical floor. She is awake and alert in no acute distress. Maintaining good O2 saturations in the 90s on liters per minute per nasal cannula. Not quite back to her baseline. She did not require BiPAP last night. She is still somewhat bronchospastic and wheezing. She is continued on DuoNeb inhalations, Pulmicort and performs inhalations, IV Solu-Medrol. The patient is seen today February 25, 2024 in follow-up on the regular medical floor. She is currently sitting up in a chair. Awake and alert in no acute distress. Breathing a bit easier today compared to yesterday. Still not quite back to her baseline. She has been slow to progress. Blood cultures revealed no growth. White count 16.5. Hemoglobin 14.3. Platelets 244. Sodium 138. Potassium 4.4. Bicarb 25. BUN 20. Creatinine 0.7. Glucose 156. She is continued on DuoNeb inhalations, Pulmicort and Perforomist inhalations, Solu- Medrol. The patient is seen today February 26, 2024 in follow-up on the regular medical floor. She is up in a chair. Awake and alert in no acute distress. Feeling quite a bit better today compared to yesterday. She is maintaining good O2 saturations in the 90s on liters per minute per nasal cannula with saturations up to 100%. Follow-up chest x-ray reveals no acute pulmonary process. Cultures revealed no growth. White count 14.1. Hemoglobin 15.2. Platelets 294. Sodium 135. Potassium 4.4. Bicarb 27. BUN 21. Creatinine 0.64. Glucose 155. She remains on DuoNeb inhalations, Pulmicort and Perforomist inhalations, IV Solu- Medrol and theophylline. Continued on Mucinex. Lovenox for DVT prophylaxis. Objective - Vital Signs Vital signs: Vital Signs Temp 98 F 02/26/24 07:25 Pulse 110 H 02/26/24 12:21 Resp 17 02/26/24 07:25 BP 144/81 02/26/24 07:25 Pulse Ox 100 02/26/24 08:41 FiO2 40 02/22/24 11:27 Intake & Output 02/25/24 02/26/24 02/26/24 18:59 06:59 18:59 Intake Total 540 120 Balance 540 120 Weight 63 kg Intake: Oral 540 120 Other: Voiding Method Toilet # Voids 3 2 - Exam GENERAL EXAM: Alert, thin 73-year-old female, up in a chair, on 2 L nasal cannula, in no apparent distress. HEAD: Normocephalic. EYES: Normal reaction of pupils, equal size. NOSE: Clear with pink turbinates. THROAT: No erythema or exudates. NECK: No masses, no JVD. CHEST: No chest wall deformity. LUNGS: Equal air entry with bilateral end expiratory wheeze, diminished. CVS: S1 and S2 normal with no audible murmur, regular rhythm. ABDOMEN: No hepatosplenomegaly, normal bowel sounds, no guarding or rigidity. SPINE: Positive scoliosis SKIN: No rashes CENTRAL NERVOUS SYSTEM: No focal deficits, tone is normal in all 4 extremities. EXTREMITIES: There is no peripheral edema. No clubbing, no cyanosis. Peripheral pulses are intact. - Labs CBC & Chem 7: 02/26/24 09:16 02/26/24 09:16 Labs: Abnormal Lab Results - Last 24 Hours (Table) 02/26/24 02/26/24 Range/Units 09:16 09:16 WBC 14.1 H (3.8-10.6) k/uL Sodium 135 L (137-145) mmol/L BUN 21 H (7-17) mg/dL Glucose 155 H (74-99) mg/dL Microbiology - Last 24 Hours (Table) 02/22/24 09:15 Blood Culture - Preliminary Blood Assessment and Plan Assessment: Acute hypoxemic respiratory failure secondary to COPD exacerbation Prior history of tobacco use History of hyperlipidemia History of hypertension Plan: The patient was seen and evaluated Medications and labs reviewed She is improved today compared to yesterday Continue bronchodilators, steroids, theophylline Titrate the FiO2 as tolerated Increase activity as tolerated Probable discharge in the a.m. We will continue to follow I have personally seen and examined the patient, performed the documentation and the assessment and plan as written. Number of minutes spent on the visit: 10.
[2024-02-27 08:46] VITALS: BMI 24.3
[2024-02-27] MEDS: DOXYCYCLINE 100 MG CAP PO SCH (09:46)
--- NOTE | 2024-02-27 12:59 | P.PN ---
Subjective Progress Note Date: 02/27/24 73-year-old female who presents to the emergency department, at about 3:45 in the morning, on 21 February, complaining of severe shortness of breath. She has a mild nonproductive cough. She has not been feeling well for about 7 or 10 days. She called our office, to get in with her art education professor, Dr. Monet, who was not available to see her. Apparently she had significant distress and was placed on BiPAP, with settings of 10/5 and 40%. She had a chest x-ray that showed no acute process. She is not receiving any IV fluids. We see her today in ER room 5. She is typically on albuterol, and a combination of long-acting beta agonist/long-acting muscarinic antagonist, Stiolto. Her disease is mild based on her lung function. She did smoke cigarettes for 40 years. She does not smoke currently. White count 9.8, hemoglobin 15.5, hematocrit 47.5. And platelet count was normal. Coagulation studies were normal. D-dimer was normal. Sodium 139, potassium 3.8, chlorides 103, CO2 28, Anion Gap 8, BUN 11, Creatinine 0.67. Glucose Is 116. Chest x-ray showed no acute disease. The patient is seen today February 23, 2024 in follow-up on the regular medical floor. She is currently sitting up at the bedside. Awake and alert in no acute distress. She is feeling better today compared to yesterday. Still not quite back to her baseline. She did not require BiPAP through the night. She is currently on 2 L nasal cannula. She is continued on Pulmicort and Perforomist inhalations, DuoNeb inhalations, Solu-Medrol. She remains on Augmentin. Her procalcitonin is 0.04. The patient is seen today February 24, 2024 in follow-up on the regular medical floor. She is awake and alert in no acute distress. Maintaining good O2 saturations in the 90s on liters per minute per nasal cannula. Not quite back to her baseline. She did not require BiPAP last night. She is still somewhat bronchospastic and wheezing. She is continued on DuoNeb inhalations, Pulmicort and performs inhalations, IV Solu-Medrol. The patient is seen today February 25, 2024 in follow-up on the regular medical floor. She is currently sitting up in a chair. Awake and alert in no acute distress. Breathing a bit easier today compared to yesterday. Still not quite back to her baseline. She has been slow to progress. Blood cultures revealed no growth. White count 16.5. Hemoglobin 14.3. Platelets 244. Sodium 138. Potassium 4.4. Bicarb 25. BUN 20. Creatinine 0.7. Glucose 156. She is continued on DuoNeb inhalations, Pulmicort and Perforomist inhalations, Solu- Medrol. The patient is seen today February 26, 2024 in follow-up on the regular medical floor. She is up in a chair. Awake and alert in no acute distress. Feeling quite a bit better today compared to yesterday. She is maintaining good O2 saturations in the 90s on liters per minute per nasal cannula with saturations up to 100%. Follow-up chest x-ray reveals no acute pulmonary process. Cultures revealed no growth. White count 14.1. Hemoglobin 15.2. Platelets 294. Sodium 135. Potassium 4.4. Bicarb 27. BUN 21. Creatinine 0.64. Glucose 155. She remains on DuoNeb inhalations, Pulmicort and Perforomist inhalations, IV Solu- Medrol and theophylline. Continued on Mucinex. Lovenox for DVT prophylaxis. The patient is seen today February 27, 2024 in follow-up on the regular medical floor. She is awake and alert in no acute distress. Sitting up in a chair. A bit more short of breath today compared to yesterday. Maintaining O2 saturati ons in the 90s on 2 L/min per nasal cannula. She remains on DuoNeb inhalations, Pulmicort and Perforomist inhalations, IV Solu-Medrol and theophylline. Continued on Mucinex. Lovenox for DVT prophylaxis. Objective - Vital Signs Vital signs: Vital Signs Temp 98.4 F 02/27/24 07:32 Pulse 106 H 02/27/24 12:24 Resp 18 02/27/24 08:00 BP 148/82 02/27/24 07:32 Pulse Ox 93 L 02/27/24 10:27 FiO2 40 02/22/24 11:27 Intake & Output 02/26/24 02/27/24 02/27/24 18:59 06:59 18:59 Intake Total 1100 Balance 1100 Weight 62.2 kg 62.2 kg Intake: Oral 1100 Other: Voiding Method Toilet Toilet # Voids 3 2 - Exam GENERAL EXAM: Alert, 73-year-old female, up in a chair, on 2 L nasal cannula, in no apparent distress. HEAD: Normocephalic. EYES: Normal reaction of pupils, equal size. NOSE: Clear with pink turbinates. THROAT: No erythema or exudates. NECK: No masses, no JVD. CHEST: No chest wall deformity. LUNGS: Equal air entry with bilateral end expiratory wheeze, diminished. CVS: S1 and S2 normal with no audible murmur, regular rhythm. ABDOMEN: No hepatosplenomegaly, normal bowel sounds, no guarding or rigidity. SPINE: Positive scoliosis SKIN: No rashes CENTRAL NERVOUS SYSTEM: No focal deficits, tone is normal in all 4 extremities. EXTREMITIES: There is no peripheral edema. No clubbing, no cyanosis. Peripheral pulses are intact. - Labs CBC & Chem 7: 02/26/24 09:16 02/26/24 09:16 Assessment and Plan Assessment: Acute hypoxemic respiratory failure secondary to COPD exacerbation Prior history of tobacco use History of hyperlipidemia History of hypertension Plan: The patient was seen and evaluated Medications reviewed She a bit worse today compared to yesterday She has been slow to progress Continue bronchodilators, steroids, theophylline And doxycycline Titrate the FiO2 as tolerated Increase activity as tolerated We will continue to follow I have personally seen and examined the patient, performed the documentation and the assessment and plan as written. Number of minutes spent on the visit: 10.
--- NOTE | 2024-02-27 16:05 | P.PN ---
Subjective Progress Note Date: 02/27/24 Subjective: Patient seen and examined at bedside. No acute events overnight. Claims that her breathing is improving. Pertinent positives and negatives as discussed above, a complete review of systems was performed and all other systems are negative. Vitals Signs Reviewed. General: Nontoxic, no distress, appears at stated age, having some conversational dyspnea Derm: Warm, dry Head: Atraumatic, normocephalic, symmetric Eyes: EOMI, no lid lag, anicteric sclera Mouth: No lip lesion, mucus membranes moist Cardiovascular: S1S2 reg, tachycardic, no murmur Lungs: Scattered wheezing, no accessory muscle use, supplemental oxygen Abdominal: Soft, nontender to palpation, no guarding, no appreciable organomegaly Ext: No gross muscle atrophy, no edema, no contractures Neuro: CN II-XI grossly intact, no focal neuro deficits Psych: Alert, oriented, appropriate affect Data Reviewed Today: Pertinent Labs: No new labs Imaging: No new imaging Assessment and Plan: 73-year-old female with history of COPD and dyslipidemia presenting with COPD exacerbation. Active: Acute hypoxic respiratory failure Acute COPD exacerbation -Continue DuoNebs 4 times daily, every 2 hours as needed, Perforomist twice daily, budesonide twice daily -Pulmonology note reviewed, slightly worse compared to yesterday, continue IV steroids 60 mg every 6 hours, Theophylline added yesterday 600 mg daily, also started on doxycycline 100 mg twice daily -Continue to wean oxygen Leukocytosis Sinus tachycardia -Likely in the setting of steroid use -Sinus tachycardia possibly in the setting of bronchodilator use as well as anxiety and COPD exacerbation -If not improving, consider EKG Dyslipidemia -Continue atorvastatin 10 mg nightly Anxiety -Xanax 0.25 3 times daily as needed DVT ppx: Lovenox Code status: DNR Anticipated discharge place: Home Anticipated discharge time: Likely tomorrow Objective - Vital Signs Vital signs: Vital Signs Temp 97.9 F 02/27/24 14:00 Pulse 124 H 02/27/24 14:00 Resp 17 02/27/24 14:00 BP 130/77 02/27/24 14:00 Pulse Ox 92 L 02/27/24 14:00 FiO2 40 02/22/24 11:27 Intake & Output 02/26/24 02/27/24 02/27/24 18:59 06:59 18:59 Intake Total 1100 Balance 1100 Weight 62.2 kg 62.2 kg Intake: Oral 1100 Other: Voiding Method Toilet Toilet # Voids 3 2 - Labs CBC & Chem 7: 02/26/24 09:16 02/26/24 09:16
--- NOTE | 2024-02-28 13:08 | P.PN ---
Subjective Progress Note Date: 02/28/24 73-year-old female who presents to the emergency department, at about 3:45 in the morning, on 21 February, complaining of severe shortness of breath. She has a mild nonproductive cough. She has not been feeling well for about 7 or 10 days. She called our office, to get in with her elevated work platform operator, Dr. Monet, who was not available to see her. Apparently she had significant distress and was placed on BiPAP, with settings of 10/5 and 40%. She had a chest x-ray that showed no acute process. She is not receiving any IV fluids. We see her today in ER room 5. She is typically on albuterol, and a combination of long-acting beta agonist/long-acting muscarinic antagonist, Stiolto. Her disease is mild based on her lung function. She did smoke cigarettes for 40 years. She does not smoke currently. White count 9.8, hemoglobin 15.5, hematocrit 47.5. And platelet count was normal. Coagulation studies were normal. D-dimer was normal. Sodium 139, potassium 3.8, chlorides 103, CO2 28, Anion Gap 8, BUN 11, Creatinine 0.67. Glucose Is 116. Chest x-ray showed no acute disease. The patient is seen today February 23, 2024 in follow-up on the regular medical floor. She is currently sitting up at the bedside. Awake and alert in no acute distress. She is feeling better today compared to yesterday. Still not quite back to her baseline. She did not require BiPAP through the night. She is currently on 2 L nasal cannula. She is continued on Pulmicort and Perforomist inhalations, DuoNeb inhalations, Solu-Medrol. She remains on Augmentin. Her procalcitonin is 0.04. The patient is seen today February 24, 2024 in follow-up on the regular medical floor. She is awake and alert in no acute distress. Maintaining good O2 saturations in the 90s on liters per minute per nasal cannula. Not quite back to her baseline. She did not require BiPAP last night. She is still somewhat bronchospastic and wheezing. She is continued on DuoNeb inhalations, Pulmicort and performs inhalations, IV Solu-Medrol. The patient is seen today February 25, 2024 in follow-up on the regular medical floor. She is currently sitting up in a chair. Awake and alert in no acute distress. Breathing a bit easier today compared to yesterday. Still not quite back to her baseline. She has been slow to progress. Blood cultures revealed no growth. White count 16.5. Hemoglobin 14.3. Platelets 244. Sodium 138. Potassium 4.4. Bicarb 25. BUN 20. Creatinine 0.7. Glucose 156. She is continued on DuoNeb inhalations, Pulmicort and Perforomist inhalations, Solu- Medrol. The patient is seen today February 26, 2024 in follow-up on the regular medical floor. She is up in a chair. Awake and alert in no acute distress. Feeling quite a bit better today compared to yesterday. She is maintaining good O2 saturations in the 90s on liters per minute per nasal cannula with saturations up to 100%. Follow-up chest x-ray reveals no acute pulmonary process. Cultures revealed no growth. White count 14.1. Hemoglobin 15.2. Platelets 294. Sodium 135. Potassium 4.4. Bicarb 27. BUN 21. Creatinine 0.64. Glucose 155. She remains on DuoNeb inhalations, Pulmicort and Perforomist inhalations, IV Solu- Medrol and theophylline. Continued on Mucinex. Lovenox for DVT prophylaxis. The patient is seen today February 27, 2024 in follow-up on the regular medical floor. She is awake and alert in no acute distress. Sitting up in a chair. A bit more short of breath today compared to yesterday. Maintaining O2 saturati ons in the 90s on 2 L/min per nasal cannula. She remains on DuoNeb inhalations, Pulmicort and Perforomist inhalations, IV Solu-Medrol and theophylline. Continued on Mucinex. Lovenox for DVT prophylaxis. The patient is seen today February 28, 2024 in follow-up on the regular medical floor. She is sitting up in a chair. Awake and alert in no acute distress. Doing a little better today compared to yesterday. She is still somewhat bronchospastic and wheezing. She is dyspneic on exertion. No new labs today. She is continued on DuoNeb inhalations, Pulmicort and performing scintillations, Solu-Medrol and theophylline. Empiric antibiotics in the form of doxycycline. Lovenox for DVT prophylaxis. Mucinex as needed. Objective - Vital Signs Vital signs: Vital Signs Temp 98 F 02/28/24 12:34 Pulse 102 H 02/28/24 12:34 Resp 18 02/28/24 12:34 BP 129/72 02/28/24 12:34 Pulse Ox 95 02/28/24 12:34 FiO2 40 02/22/24 11:27 Intake & Output 02/27/24 02/28/24 02/28/24 18:59 06:59 18:59 Weight 62.2 kg 62.5 kg Other: Voiding Method Toilet Toilet # Voids 1 3 - Exam GENERAL EXAM: Alert, oriented 73-year-old female, on 2 L nasal cannula, in no apparent distress. HEAD: Normocephalic. EYES: Normal reaction of pupils, equal size. NOSE: Clear with pink turbinates. THROAT: No erythema or exudates. NECK: No masses, no JVD. CHEST: No chest wall deformity. LUNGS: Equal air entry with bilateral end expiratory wheeze, diminished. CVS: S1 and S2 normal with no audible murmur, regular rhythm. ABDOMEN: No hepatosplenomegaly, normal bowel sounds, no guarding or rigidity. SPINE: Positive scoliosis SKIN: No rashes CENTRAL NERVOUS SYSTEM: No focal deficits, tone is normal in all 4 extremities. EXTREMITIES: There is no peripheral edema. No clubbing, no cyanosis. Peripheral pulses are intact. - Labs CBC & Chem 7: 02/26/24 09:16 02/26/24 09:16 Labs: Microbiology - Last 24 Hours (Table) 02/22/24 09:15 Blood Culture - Final Blood Assessment and Plan Assessment: Acute hypoxemic respiratory failure secondary to COPD exacerbation. Procalcitonin negative. Chest x-ray shows no acute process Prior history of tobacco use History of hyperlipidemia History of hypertension Plan: The patient was seen and evaluated Medications reviewed She has been slow to progress Continue bronchodilators, steroids, theophylline Continue empiric doxycycline Add a flutter valve Titrate the FiO2 as tolerated Increase activity as tolerated We will continue to follow I have personally seen and examined the patient, performed the documentation and the assessment and plan as written. Number of minutes spent on the visit: 10.
--- NOTE | 2024-02-28 15:03 | P.PN ---
Subjective Progress Note Date: 02/28/24 Principal diagnosis: Subjective: Patient seen at bedside. No significant overnight events. Claims her breathing is improving. Pertinent positives and negatives discussed above, a complete review of systems was preformed and all the other systems were negative. Vitals Signs Reviewed. General: non toxic, no distress, appears at stated age, normal weight Derm: no unusual rashes/lesions, warm Head: atraumatic, normocephalic, symmetric Eyes: EOMI, no lid lag, anicteric sclera, pupils equal round reactive to light ENT: Nose and ears atraumatic Neck: No cervical lymphadenopathy, trachea midline, supple Mouth: no lip lesion, mucus membranes moist Cardiovascular: S1S2 reg, no murmur, positive dorsalis pedis pulse bilateral, no edema Lungs: Bilateral expiratory wheezing bilaterally, no rhonchi, no rales, no accessory muscle use Abdominal: soft, nontender to palpation, no guarding Ext: muscle strength 5 out of 5 in all 4 extremities grossly, no gross muscle atrophy, no contractures, Neuro: CN II-XI grossly intact, no gross focal neuro deficits Psych: Alert, oriented, appropriate affect Data Reviewed Today: Patient Labs: No new labs Imaging: No new imaging Assessment and Plan: 73-year-old female with history of COPD and dyslipidemia presenting with COPD exacerbation that is only mildly improving despite bronchodilators, steroids, theophylline, and doxycycline. Active Acute hypoxic respiratory failure Acute COPD exacerbation Continue DuoNebs 4 times daily and every 2 hours as needed Continue Perforomist twice daily Continue budesonide twice daily Continue IV Solu-Medrol 60 mg every 6 hours Continue theophylline 600 mg daily Continue doxycycline 100 mg twice daily Wean oxygen as tolerated Discussed management with pulmonology, possible bronchoscopy tomorrow if no improvement Leukocytosis, likely secondary to steroid use Continue to monitor Sinus tachycardia, possibly due to bronchodilators, anxiety, or COPD exacerbation Continue to treat underlying problem Lipidemia Continue atorvastatin 10 mg nightly Anxiety Continue Xanax 0.25 mg 3 times daily as needed F none E none N heart healthy A normally ambulates unassisted at home DVT ppx: Lovenox 40 mg subcu daily Code Status: No code with instructions to be intubated for short period of time only. Anticipated discharge place: Pending clinical course Anticipated discharge time: Pending clinical course I have seen and evaluated the patient today. Discussed with the resident and agree with the residents finding and plan as documented in the resident's note. Changes highlighted in blue font. Objective - Vital Signs Vital signs: Vital Signs Temp 97.4 F L 02/28/24 07:22 Pulse 109 H 02/28/24 07:22 Resp 19 02/28/24 07:22 BP 161/75 02/28/24 07:22 Pulse Ox 92 L 02/28/24 07:22 FiO2 40 02/22/24 11:27 Intake & Output 02/27/24 02/28/24 02/28/24 18:59 06:59 18:59 Weight 62.2 kg 62.5 kg Other: Voiding Method Toilet Toilet # Voids 1 3 - Labs CBC & Chem 7: 02/26/24 09:16 02/26/24 09:16 Labs: Microbiology - Last 24 Hours (Table) 02/22/24 09:15 Blood Culture - Final Blood
[2024-02-29 07:50] VITALS: BP 135/76; RESP 17; TEMP 98
--- NOTE | 2024-02-29 10:15 | P.PN ---
Subjective Progress Note Date: 02/29/24 73-year-old female who presents to the emergency department, at about 3:45 in the morning, on 21 February, complaining of severe shortness of breath. She has a mild nonproductive cough. She has not been feeling well for about 7 or 10 days. She called our office, to get in with her crown attacher, Dr. Monet, who was not available to see her. Apparently she had significant distress and was placed on BiPAP, with settings of 10/5 and 40%. She had a chest x-ray that showed no acute process. She is not receiving any IV fluids. We see her today in ER room 5. She is typically on albuterol, and a combination of long-acting beta agonist/long-acting muscarinic antagonist, Stiolto. Her disease is mild based on her lung function. She did smoke cigarettes for 40 years. She does not smoke currently. White count 9.8, hemoglobin 15.5, hematocrit 47.5. And platelet count was normal. Coagulation studies were normal. D-dimer was normal. Sodium 139, potassium 3.8, chlorides 103, CO2 28, Anion Gap 8, BUN 11, Creatinine 0.67. Glucose Is 116. Chest x-ray showed no acute disease. The patient is seen today February 23, 2024 in follow-up on the regular medical floor. She is currently sitting up at the bedside. Awake and alert in no acute distress. She is feeling better today compared to yesterday. Still not quite back to her baseline. She did not require BiPAP through the night. She is currently on 2 L nasal cannula. She is continued on Pulmicort and Perforomist inhalations, DuoNeb inhalations, Solu-Medrol. She remains on Augmentin. Her procalcitonin is 0.04. The patient is seen today February 24, 2024 in follow-up on the regular medical floor. She is awake and alert in no acute distress. Maintaining good O2 saturations in the 90s on liters per minute per nasal cannula. Not quite back to her baseline. She did not require BiPAP last night. She is still somewhat bronchospastic and wheezing. She is continued on DuoNeb inhalations, Pulmicort and performs inhalations, IV Solu-Medrol. The patient is seen today February 25, 2024 in follow-up on the regular medical floor. She is currently sitting up in a chair. Awake and alert in no acute distress. Breathing a bit easier today compared to yesterday. Still not quite back to her baseline. She has been slow to progress. Blood cultures revealed no growth. White count 16.5. Hemoglobin 14.3. Platelets 244. Sodium 138. Potassium 4.4. Bicarb 25. BUN 20. Creatinine 0.7. Glucose 156. She is continued on DuoNeb inhalations, Pulmicort and Perforomist inhalations, Solu- Medrol. The patient is seen today February 26, 2024 in follow-up on the regular medical floor. She is up in a chair. Awake and alert in no acute distress. Feeling quite a bit better today compared to yesterday. She is maintaining good O2 saturations in the 90s on liters per minute per nasal cannula with saturations up to 100%. Follow-up chest x-ray reveals no acute pulmonary process. Cultures revealed no growth. White count 14.1. Hemoglobin 15.2. Platelets 294. Sodium 135. Potassium 4.4. Bicarb 27. BUN 21. Creatinine 0.64. Glucose 155. She remains on DuoNeb inhalations, Pulmicort and Perforomist inhalations, IV Solu- Medrol and theophylline. Continued on Mucinex. Lovenox for DVT prophylaxis. The patient is seen today February 27, 2024 in follow-up on the regular medical floor. She is awake and alert in no acute distress. Sitting up in a chair. A bit more short of breath today compared to yesterday. Maintaining O2 saturati ons in the 90s on 2 L/min per nasal cannula. She remains on DuoNeb inhalations, Pulmicort and Perforomist inhalations, IV Solu-Medrol and theophylline. Continued on Mucinex. Lovenox for DVT prophylaxis. The patient is seen today February 28, 2024 in follow-up on the regular medical floor. She is sitting up in a chair. Awake and alert in no acute distress. Doing a little better today compared to yesterday. She is still somewhat bronchospastic and wheezing. She is dyspneic on exertion. No new labs today. She is continued on DuoNeb inhalations, Pulmicort and performing scintillations, Solu-Medrol and theophylline. Empiric antibiotics in the form of doxycycline. Lovenox for DVT prophylaxis. Mucinex as needed. The patient is seen today February 29, 2024 in follow-up on the regular medical floor. She is awake and alert in no acute distress. Sitting up in a chair. Doing much better. Feeling back to her baseline. She is maintaining good O2 saturations in the 90s on 2 L/min per nasal cannula. She is continued on DuoNeb inhalations, Symbicort, Solu-Medrol, theophylline. Empiric antibiotics in the form of doxycycline. Lovenox for DVT prophylaxis. No new labs today. Objective - Vital Signs Vital signs: Vital Signs Temp 98 F 02/29/24 07:50 Pulse 103 H 02/29/24 09:04 Resp 17 02/29/24 07:50 BP 135/76 02/29/24 07:50 Pulse Ox 91 L 02/29/24 07:50 FiO2 40 02/22/24 11:27 Intake & Output 02/28/24 02/29/24 02/29/24 18:59 06:59 18:59 Intake Total 780 1080 Balance 780 1080 Weight 62.2 kg Intake: Oral 780 1080 Other: Voiding Method Toilet # Voids 3 5 - Exam GENERAL EXAM: Alert, oriented 73-year-old female, comfortable, up in a chair, on 2 L nasal cannula, in no apparent distress. HEAD: Normocephalic. EYES: Normal reaction of pupils, equal size. NOSE: Clear with pink turbinates. THROAT: No erythema or exudates. NECK: No masses, no JVD. CHEST: No chest wall deformity. LUNGS: Equal air entry with no rhonchi, crackles or wheeze, diminished. CVS: S1 and S2 normal with no audible murmur, regular rhythm. ABDOMEN: No hepatosplenomegaly, normal bowel sounds, no guarding or rigidity. SPINE: Positive scoliosis SKIN: No rashes CENTRAL NERVOUS SYSTEM: No focal deficits, tone is normal in all 4 extremities. EXTREMITIES: There is no peripheral edema. No clubbing, no cyanosis. Peripheral pulses are intact. - Labs CBC & Chem 7: 02/26/24 09:16 02/26/24 09:16 Assessment and Plan Assessment: Acute hypoxemic respiratory failure secondary to COPD exacerbation. Procalcitonin negative. Chest x-ray shows no acute process Prior history of tobacco use History of hyperlipidemia History of hypertension Plan: The patient was seen and evaluated Medications reviewed Stable for discharge Evaluate for possible home oxygen Continue Symbicort, DuoNeb inhalations Complete 4 more days of doxycycline Continue with the flutter valve Complete a prednisone taper Follow-up in our office in 1 week This patient was seen independently by the pulmonary nurse practitioner addressing pulmonary issues I have personally seen and examined the patient, performed the documentation and the assessment and plan as written. Number of minutes spent on the visit: 24.
[2024-02-29 11:37] VITALS: PULSE 103
--- NOTE | 2024-02-29 15:47 | P.DS ---
Providers Date of admission: 02/22/24 07:23 Expected date of discharge: 02/29/24 Attending physician: Tina Frazier MD Consults: 02/22/24 07:25 Consult Physician Routine Consulting Provider: Jolanta Monet Consult Reason/Comments: your patient. COPD exacerbation Do you want consulting provider notified?: Yes Primary care physician: Abhilash Henry [facility] Course: Discharge Diagnosis: Acute hypoxic respiratory failure Acute COPD exacerbation Leukocytosis likely secondary to steroid use Sinus tachycardia due to bronchodilators, anxiety or COPD exacerbation Hyperlipidemia Anxiety Hospital Course: 73-year-old female with past medical history of COPD (no home oxygen), hypertension, and hyperlipidemia presented to the ER on 02/22/2024 complaining of worsening shortness of breath. She had reported that for the last week she had had shortness of breath that has been progressively worse. She also reported having to sleep in a chair instead of her own bed to alleviate her breathing at night. She denied having home oxygen. She denied any chest pain, palpitations, headache,abdominal pain, diarrhea, constipation, nausea vomiting, lower ext remity swelling, or changes in urination or bowel movements.Vitals in the ED significant for heart rate 112, respiratory rate 36, blood pressure 187/86, and O2 saturation 88 on room air. Labs in the ED significant for sodium 139, potassium 3.8, BUN 11, creatinine 0.67, glucose 116, troponin 0.017, BNP 253, WBC 9.8, hemoglobin 15.5, and MCV 93.5. Imaging in the ED significant for EKG shows sinus tach, possible left atrial enlargement, ventricular rate 103 bpm, NE interval 134 MS, and QTc 384 MS. CXR shows no acute findings in the chest. While in the ED patient received 1.4 mg sublingual nitroglycerin, one-time DuoNeb 3 mL nebulized and 2 Ventolin nebulized 2.5 mg with symptom improvement. Patient also received first of 10 doses of Augmentin [id number] p.o. every 12 hours. Patient was admitted for further workup and treatment of acute on chronic hypoxic respiratory failure likely secondary to COPD exacerbation. Patient was seen by pulmonology who started DuoNebs, ipratropium bromide, budesonide, formoterol, and prednisone. She received 2 more doses of Augmentin, which was discontinued after procalcitonin and blood cultures came back normal. She was maintained on BiPAP support for a few hours but then transitioned to nasal cannula. Patient's breathing continued to improve and her O2 sats were maintained. Due to slow progression of recovery, theophylline and doxycycline were added. Home medications were resumed. Patient received handouts on COPD. Patient will be discharged home with home health services. Patient instructed to follow-up with PCP Dr. Henry in 1 to 2 days. Patient has a follow-up appointment with Dr. Monet on March 27. She will be discharged on steroid taper. Pt seen and examined at bedside and is excited for discharge. Vital signs reviewed and stable: General: non toxic, no distress, appears at stated age, normal weight Derm: no unusual rashes/lesions, warm Head: atraumatic, normocephalic, symmetric Eyes: EOMI, no lid lag, anicteric sclera, pupils equal round reactive to light ENT: Nose and ears atraumatic Neck: No cervical lymphadenopathy, trachea midline, supple Mouth: no lip lesion, mucus membranes moist Cardiovascular: S1S2 reg, no murmur, positive dorsalis pedis pulse bilateral, no edema Lungs: Decreased air entry bilaterally, no rhonchi, no rales, no accessory muscle use Abdominal: soft, nontender to palpation, no guarding Ext: muscle strength 5 out of 5 in all 4 extremities grossly, no gross muscle atrophy, no contractures, Neuro: CN II-XI grossly intact, no gross focal neuro deficits Psych: Alert, oriented, appropriate affect A total of 30 minutes were spent preparing this complex discharge summary. Patient was discharged on February 29, 2024 at 1033. I have seen and evaluated the patient today. Discussed with the resident and agree with the residents finding and plan as documented in the resident's note. Changes highlighted in blue font. Plan - Discharge Summary Discharge Rx Participant: Yes New Discharge Prescriptions: New Doxycycline [Vibramycin] 100 mg PO BID #8 cap Budesonide-Formot 160-4.5 Mcg [Symbicort 160-4.5 Mcg Inhaler] 2 puff INHALATION BID #1 each predniSONE [Deltasone] See Rx Instructions .ROUTE .COMPLEX #25 tab Pantoprazole [Protonix] 40 mg PO AC-BRKFST #20 tab Continue Magnesium Oxide [Magnesium] 500 mg PO DAILY Calcium Carbonate/Vitamin D3 [Calcium 600 mg-D3 20 mcg (800 unit)] 1 tab PO DAILY Albuterol Sulfate [Albuterol Sulfate Hfa] 2 puff INHALATION RT-Q4H Rosuvastatin Calcium [Crestor] 5 mg PO HS Cholecalciferol (Vitamin D3) [Vitamin D3 (125 MCG = 5,000 IU)] 125 mcg PO DAILY Tiotropium Br/Olodaterol HCl [Stiolto Respimat Inhaler (60)] 2 puff INHALATION RT-DAILY Discharge Medication List Albuterol Sulfate [Albuterol Sulfate Hfa] 2 puff INHALATION RT-Q4H 02/22/24 [History] Calcium Carbonate/Vitamin D3 [Calcium 600 mg-D3 20 mcg (800 unit)] 1 tab PO DAILY 02/22/24 [History] Cholecalciferol (Vitamin D3) [Vitamin D3 (125 MCG = 5,000 IU)] 125 mcg PO DAILY 02/22/24 [History] Magnesium Oxide [Magnesium] 500 mg PO DAILY 02/22/24 [History] Rosuvastatin Calcium [Crestor] 5 mg PO HS 02/22/24 [History] Tiotropium Br/Olodaterol HCl [Stiolto Respimat Inhaler (60)] 2 puff INHALATION RT-DAILY 02/22/24 [History] Budesonide-Formot 160-4.5 Mcg [Symbicort 160-4.5 Mcg Inhaler] 2 puff INHALATION BID #1 each 02/29/24 [Rx] Doxycycline [Vibramycin] 100 mg PO BID #8 cap 02/29/24 [Rx] Pantoprazole [Protonix] 40 mg PO AC-BRKFST #20 tab 02/29/24 [Rx] predniSONE [Deltasone] See Rx Instructions .ROUTE .COMPLEX #25 tab 02/29/24 [Rx] Follow up Appointment(s)/Referral(s): Abhilash Henry MD [Primary Care Provider] - 1-2 days Jolanta Monet MD [STAFF PHYSICIAN] - 03/27/24 10:30 am Patient Instructions/Handouts: COPD (Chronic Obstructive Pulmonary Disease) (DC) Activity/Diet/Wound Care/Special Instructions: Please see pulmonology and PCP. Discharge Disposition: HOME WITH HOME HEALTH SERVICES
[2024-02-29] MEDS ORDERED: SYMBICORT 160-4.5 MCG INHALER INHALATION SCH (20:00)
[2024-03-01] MEDS ORDERED: predniSONE 20 MG TAB PO SCH (09:00)
== END 2024-02-29 13:55 | disposition home health service (06) | DRG 190 ==
LOC: EC 03:49 → 3SCARD 07:23 → 5NMEDONC 12:48
PROVIDERS: ADMIT Internal Medicine; ATTEND Internal Medicine
DX: J44.1 Chronic obstructive pulmonary disease with (acute) exacerbation (principal); J96.21 Acute and chronic respiratory failure with hypoxia; R65.10 Systemic inflammatory response syndrome (SIRS) of non-infectious origin without acute organ dysfunction; J44.0 Chronic obstructive pulmonary disease with (acute) lower respiratory infection; E78.5 Hyperlipidemia, unspecified; I10 Essential (primary) hypertension; F41.9 Anxiety disorder, unspecified; Z87.891 Personal history of nicotine dependence; J20.9 Acute bronchitis, unspecified; T38.0X5A Adverse effect of glucocorticoids and synthetic analogues, initial encounter; X58.XXXA Exposure to other specified factors, initial encounter; Z88.6 Allergy status to analgesic agent; Z88.8 Allergy status to other drugs, medicaments and biological substances; Z90.710 Acquired absence of both cervix and uterus; Z79.899 Other long term (current) drug therapy; Z66 Do not resuscitate; R00.0 Tachycardia, unspecified
CPT/HCPCS: 36415; 71045; 80048; 80053; 83605; 83880; 84145; 84484; 85025; 85027; 85379; 85610; 85730; 87040; 93005; 94640; 94660; 94667; 94760; 96374; 99285

== ENCOUNTER → 2024-05-22 | Outpatient (CLI) | payer MEDICARE ==
--- NOTE | 2024-05-22 12:35 | CTL ---
EXAMINATION TYPE: CT Low Dose Lung DATE OF EXAM ORDERED: 05/22/2024 COMPARISON: Chest radiograph 02/25/2024 CLINICAL INDICATION: Female, 73 years old with history of Z12.2 ENCNTR SCREEN FOR MALIGNANT NEOPLASM OF RESP; [facility], Former smoker, quit 2 months ago. .75 ppd x 50 years, Lung cancer screening, History of Smoking/tobacco use. TECHNIQUE: Low dose computed tomography scan was performed through the chest at 1 mm thick sections a nd reconstructed images in multiple planes at 1 mm and [address] DLP: [address] CTDI: 1.92 mGy Automated exposure control for dose reduction was used. CT DIAGNOSTIC QUALITY: Satisfactory FINDINGS: Nodules: No clinically significant pulmonary nodule. LUNGS: COPD: Severity: None Fibrosis: Severity: None Lymph nodes: None Other findings: Lower lobe pulmonary cyst measuring up to 2.9 cm. Trace scarring within the posterior medial aspect of the right apex. Minimal scarring or atelectasis within the medial aspect of the rig ht middle lobe. RIGHT PLEURAL SPACE: Effusion: None Calcification: None Thickening: None Pneumothorax: None LEFT PLEURAL SPACE: Effusion: None Calcification: None Thickening: None Pneumothorax: None HEART: Heart Size: Normal Coronary Calcification: Small Pericardial Effusion: None OTHER FINDINGS: Upper abdomen: None Bony thorax: S-shaped scoliotic curvature of the thoracolumbar spine. Mild to moderate multilevel deg enerative disease. Supraclavicular region: Heterogenous prominent thyroid gland. Other: Atherosclerotic calcification of the aorta and its branches. IMPRESSION: No clinically significant pulmonary nodule. CT LUNG RAD AND CT CHEST RECOMMENDATION: Lung-Rad 1 Negative: Continue annual screening with LDCT in 12 months. S Modifier (other clinically significant findings): None [facility], , 05/22/2024 12:33 PM
== END | disposition home or self-care (01) ==
LOC: RADCTMAIN 11:53
PROVIDERS: ATTEND Internal Medicine Critical Care Medicine
CPT/HCPCS: 71271